=== PATIENT | female | born 1965 | race Caucasian/White ===

== ENCOUNTER → 2018-11-09 10:49 | Outpatient (CLI) | payer BC, SELFPAY ==
--- NOTE | 2018-11-09 10:56 | US_ITS ---
US thyroid HISTORY: Follow-up thyroid nodule, enlarged thyroid ITS.REASON: THYROID NODULE ORDERING PHYSICIAN: Yanira Senior MD PATIENT AGE: 53 years Comparison: 08/09/2014 FINDINGS: There is heterogeneous echogenicity of the thyroid gland on both sides. The right lobe is 4.5 x 1.7 x 1.5 cm. The left lobe is 4.2 x 1.2 x 1.5 cm. The isthmus is unremarkable. No nodules apparent IMPRESSION: Mildly enlarged thyroid gland with heterogeneous echogenicity without obvious nodule
== END ==
PROVIDERS: PCP Family Medicine; Visit Provider Family Medicine
DX: E04.1 Nontoxic single thyroid nodule (principal)
CPT/HCPCS: 76536

== ENCOUNTER → 2020-09-15 14:47 | Outpatient (CLI) | payer BC, SELFPAY ==
--- NOTE | 2020-09-15 | XR_ITS ---
PROCEDURE: XR FOOT LT MIN 3V CLINICAL INDICATION: CONTUSION OF THE LT FOOT COMPARISON: No exams were available for comparison FINDINGS: There are nondisplaced fractures involving the distal shaft of the 4th and 5th metatarsals. There is minimal impaction of the 5th metatarsal fracture fragments and there is minimal lateral angulation of the distal fracture fragments. The joint spaces are well-preserved. No significant degenerative/arthritic changes. No erosive changes evident. Other findings:None. IMPRESSION: Nondisplaced fractures 4th and 5th metatarsals Dictated by: Dm Hurst MD 09/15/2020 15:39 Dm Hurst MD in [place] 09/15/2020 15:39
== END ==
PROVIDERS: PCP Family Medicine; Visit Provider Family Medicine
DX: S90.32XA Contusion of left foot, initial encounter (principal)
CPT/HCPCS: 73630

== ENCOUNTER → 2020-09-21 14:26 | Outpatient (CLI) | payer BC, SELFPAY ==
[2020-09-21 15:16] LABS: Basophils # 0.1 K/mm3 (0-0.2); Basophils % 0.8 % (0.1-2.0); Eosinophils # 0.1 K/mm3 (0.0-0.4); Eosinophils % 0.8 % (0.1-12.0); Hematocrit 44.1 % (37.0-47.0); Hemoglobin 14.7 g/dL (12.2-16.2); Lymphocytes # 1.9 K/mm3 (0.7-4.5); Lymphocytes % 15.8 % (10-50); Mean Corpuscular HGB Conc 33.3 g/dL (31.8-35.4); Mean Corpuscular Hemoglobin 33.5 pg (27.0-31.2); Mean Corpuscular Volume 100.5 fl (81-99); Monocytes # 0.7 K/mm3 (0.1-1.0); Neutrophils % 76.6 % (37.0-80.0); Platelet Count 342 K/mm3 (142-424); Red Blood Count 4.39 M/mm3 (4.20-5.40); Red Cell Distribution Width 13.3 % (11.5-17.5); White Blood Count 11.8 K/mm3 (4.8-10.8)
--- NOTE | 2020-09-21 15:26 | XR_ITS ---
PROCEDURE: XR CHEST 2V CLINICAL HISTORY: SEASONAL ALLERGIES,SINUSITIS COMPARISON: No exams were available for comparison FINDINGS: The cardiomediastinal silhouette and pulmonary vascularity are within normal limits. The lungs are clear without infiltrates, suspicious nodules, or pleural effusions. There is mild hyperinflation. Calcified granuloma is present in the right upper lobe. Mild thoracic curvature convex left IMPRESSION: Hyperinflation with old granulomatous disease. No acute finding. Dictated by: Dm Hurst MD 09/21/2020 18:02 Dm Hurst MD in [place] 09/21/2020 18:02
[2020-09-21 16:24] LABS: Chloride 103 mmol/L (98-107); Sodium 140 mmol/L (136-145)
[2020-09-21 16:27] LABS: Alanine Aminotransferase 42 U/L (12-78); Albumin Level 4.9 g/dl (3.5-5.0); Albumin/Globulin Ratio 1.6 (1.1-1.8); Alkaline Phosphatase 117 U/L (38-126); Aspartate Amino Transferase 44 U/L (14-36); Bilirubin,Total 0.4 mg/dl (0.2-1.3); Blood Urea Nitrogen 13 mg/dl (7-17); Calcium 10.4 mg/dl (8.4-10.2); Carbon Dioxide 25 mmol/L (22.0-30.0); Estimated Glomerular Filt Rate 105 ml/min (>60); GFR (African American) 127 ML/MIN (>60); Glucose 95 mg/dl (74-100); Total Protein,Serum 7.9 g/dl (6.3-8.2)
[2020-09-21 16:44] LABS: 25-OH Vitamin D, Total 39.5 ng/mL (30-100)
--- NOTE | 2020-09-21 16:50 | ECG_ITS ---
APPROVED REPORT Exam: Resting ECG HR:74 bpm ECG Measurements Heart Rate [address] 154 P 73 QRSd 74 QRS 70 QT 416 T 58 QTc 461 Conclusion Sinus rhythm with premature atrial complexes with aberrant conduction Right atrial enlargement Septal infarct, age undetermined Abnormal ECG Electronically signed by : Jorge Lutz, 09/22/2020 14:47:31
[2020-09-21 17:53] LABS: Coronavirus 19 IgG Antibody Negative (Negative); Coronavirus 19 IgM Antibody Negative (Negative)
== END ==
PROVIDERS: Visit Provider Podiatrist
DX: Z01.818 Encounter for other preprocedural examination (principal); S92.352A Displaced fracture of fifth metatarsal bone, left foot, initial encounter for closed fracture
CPT/HCPCS: 36415; 71046; 80053; 82306; 85025; 86328; 93005

== ENCOUNTER 2020-09-23 10:36 | Day surgery (SDC) | payer BC, SELFPAY ==
[2020-09-21 11:49] VITALS: BMI 21.0
[2020-09-23] VITALS (12 sets, daily range): BP systolic 116–156; BP diastolic 69–91; PULSE 78–100; RESP 14–20; TEMP 36.3–43; O2SAT 93–98
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
--- NOTE | 2020-09-23 14:49 | XR_ITS ---
PROCEDURE: XR FOOT LT 2V CLINICAL INDICATION: LEFT ORIF IN OR COMPARISON: CR XR FOOT LT MIN 3V from 09/15/2020 FINDINGS: Fluoro time: 17 seconds Status post ORIF 4th and 5th metatarsal fractures with bone plates and cerclage wires placed with good alignment. Other findings:None. IMPRESSION: Good alignment status post ORIF 4th and 5th metatarsal fractures Dictated by: Dm Hurst MD 09/23/2020 15:24 Dm Hurst MD in [place] 09/23/2020 15:24
--- NOTE | 2020-09-23 15:00 | XR_ITS ---
PROCEDURE: XR FOOT LT 2V CLINICAL INDICATION: LEFT ORIF IN OR Follow-up surgery COMPARISON: CR XR FOOT LT MIN 3V from 09/15/2020 FINDINGS: Fluoro time: 17 seconds Status post ORIF 4th and 5th metatarsal fractures with bone plates and cerclage wires placed with good alignment. Other findings:Posterior splint is in place. IMPRESSION: Good alignment status post ORIF 4th and 5th metatarsal fractures Dictated by: Dm Hurst MD 09/24/2020 06:20 Dm Hurst MD in [place] 09/24/2020 06:20
--- NOTE | 2020-09-23 15:24 | HMH.ANESI ---
[facility] Anesthesia Record Part I Intake, IV Amount: 1,500 Estimated blood loss (mL): 10 Urine output (mL): 0 (NM) Blood Products used (#): none Blood Pressure: 156/91 SaO2: 96 Pulse Rate: 100 Respiratory Rate: 15 Temperature: 98.8 F Patient is:: Awake, Drowsy, Stable Stable to PACU at:: 15:20
--- NOTE | 2020-09-23 15:31 | HMH.OPNOTE ---
Date of procedure: 09/23/20 Pre-op Diagnosis:: 1. Left closed displaced 5th metatarsal fracture 2. Left closed comminuted 4th metatarsal fracture 3. Left traumatic ecchymosis Post-op Diagnosis:: Same Procedure performed:: 1. Left ORIF 4th metatarsal 2. Left ORIF 5th metatarsal 3. Application of BMA, injectable graft 4. Application of posterior splint Surgeon:: Elisabeth Yusuf DPM TRADING ASSISTANT:: Tay Rodriguez Anesthesia: GETA, regional (Left popliteal block) Estimated blood loss (mL): 20 Clinical Note:: Patient is a 54 y/o female who tripped and stumped her left foot on 09/13/20. X-rays 3 views of left foot taken 09/15/2020 evaluated by myself. Report noted. FINDINGS: There are nondisplaced fractures involving the distal shaft of the 4th and 5th metatarsals. There is minimal impaction of the 5th metatarsal fracture fragments and there is minimal lateral angulation of the distal fracture fragments. The joint spaces are well-preserved. No significant degenerative/arthritic changes. No erosive changes evident. Other findings: None. IMPRESSION: Nondisplaced fractures 4th and 5th metatarsals. X-rays reviewed and discussed with the patient. Conservative treatment discussed including immobilization nonweightbearing in the boot or cast, compression therapy for the edema and serial x-rays to for healing. Patient is an active 54-year-old female who works remotely from home and also at a retirement. Her activity does require her to be weightbearing and walking around the retirement. We discussed fastest return activity would include surgery. We discussed surgery. All risks and benefits were discussed including but not limited to: damage to blood vessels and nerves, bleeding, infection, wound complications, delayed, mal or non-union of bone, post-traumatic arthritis, need for further surgery, need for removal of implant, prolonged swelling of the extremity, prolonged pain, CRPS/RSD, DVT, and anesthetic complications. No guarantees were given. All questions fully answered. The patient verbalized understanding and agreed to proceed with surgery. Consent was obtained. We also discussed DVT and PE in detail. Patient's mother had a DVT secondary to a punctured lung. We discussed risk factors. Patient is not obese and has no personal history DVT. Discussed anticoagulation therapy including Lovenox Xarelto and aspirin. Recommend aspirin 81 mg in the postoperative. For DVT prophylaxis. Necessary labs and pre-op testing ordered: CBC, BMP, Vit D, EKG, CXR, covid. Pt was given a Rx for [place] 7.5/325 #30, Zofran, Motrin. Patient has crutches at home. I recommended RKS. Saw Dr. Avina, PCP on 09/15/20 and got medical clearance on 09/21/20. Operative findings:: Left foot edema and traumatic ecchymosis has improved. Fourth and fifth metatarsal fractures noted. The fourth and fifth metatarsal head cartilage intact. There was comminution of both metatarsals with impaction and shortening of the distal metatarsal. No fracture healing or callus formation noted. No deep signs of infection noted. Operative note:: On this date and time patient was deemed an appropriate surgical candidate. A pre-operative popliteal regional nerve block was given by anesthesia. With informed consent signed, the patient was taken to the operating theater. The patient was positioned supine. General anesthesia was induced. Tourniquet was applied to the left mid-calf. The left lower extremity was prepped and draped in normal sterile fashion. At the start of the case 5 cc of the patient's blood was taken to use for the bone marrow aspirate (BMA). Left 4-5th Metatarsal ORIF, Application of Ignite BMA/graft, Application of posterior splint: Attention was directed to the dorsal foot, where intra-op fluoroscopy was used to map out the 4-5th metatarsals on the AP, MO and lateral views. The left midcalf tourniquet was inflated at 225 mmHg. A 15' blade was used to make two separate incisions. One extending from the 4th metatarsal phalang
--- NOTE | 2020-09-23 18:23 | HMH.ANESII ---
[facility] Anesthesia Record Part II Discharge Time: 15:50 Destination: Surgical Day Care (OP Surgery) PACU nurse assessment reviewed?: Yes Patient Condition:: Good Anesthesia Complications:: None Swallowing reflex intact?: Yes Cyanosis?: No Blood Pressure: 139/82 Pulse Rate: 83 Temperature: 98.8 F Mental Status: Alert & Oriented Pain level:: 0 (nm) Nausea and/or vomitting:: None Intake, IV Amount: 0
== END 2020-09-23 16:32 | disposition home or self-care (01) ==
PROVIDERS: PCP Family Medicine; Visit Provider Podiatrist
PROC: (CPT 28485; principal; 2020-09-23 12:15)
DX: S92.352A Displaced fracture of fifth metatarsal bone, left foot, initial encounter for closed fracture (principal); S92.342A Displaced fracture of fourth metatarsal bone, left foot, initial encounter for closed fracture; W01.0XXA Fall on same level from slipping, tripping and stumbling without subsequent striking against object, initial encounter; Y92.009 Unspecified place in unspecified non-institutional (private) residence as the place of occurrence of the external cause
CPT/HCPCS: 28485 ×2; 73620; 73630; 76000; 96374; C1713; C1762; C1776; J2405

== ENCOUNTER 2020-10-12 12:00 | Emergency (ER) | payer BC, SELFPAY ==
[2020-10-12 13:05] VITALS: BP 123/78; PULSE 68; RESP 16; TEMP 36.8; O2SAT 96; BMI 20.9
--- NOTE | 2020-10-12 13:16 | HMH.EDUTC ---
[facility] Disposition Clinical Impression: Encounter for laboratory testing for COVID-19 virus Disposition: Home, Self-Care Condition on Discharge: Good Instructions: Preventing the Spread of Coronavirus Discharge Instructions Additional Instructions: *Monitor Temp, Over the counter Motrin or Tylenol as directed/as needed Tylenol every 4 hours and Motrin every 6 hours (as long as your family doctor has told you that you can take it) for fever or pain. and straight to ER if unable to lower temp less than 101.0 after medication given *Warm salt water gargles may help to soothe the throat *Throat Lozenges *Warm fluids like tea with honey may help to soothe the throat *Sleep elevated *Humidifier/Vaporizer *Flonase 2 sprays in each nostril daily but be aware that it may take 2-3 days before you notice improvement Follow up IMMEDIATELY for new or worsening symptoms or no Noticeable improvement over the next 48-72 hours. 911 for difficulty breathing or swallowing You was tested for today for COVID19 your test result should be back in the next 24-48 hours, you may call to the [facility] later today or tomorrow to see if your test results are back and the result [phone] [facility] hours are 9am-9pm You was given a handout with instructions for Self Quarantine and Self isolation for while you wait on test results and what to do if they are positive If you are positive the Health Dept will be contacting you also Referrals: Yanira Senior MD [Primary Care Provider] - As needed Forms: Work/School Release Time of Disposition: 13:19 Medical Decision Making - Evan Inquiry Pt receiving controlled substance: No Evan was queried for this patient: No Vital Signs: 10/12/20 13:05 Temperature 98.3 F Temperature Source Oral Pulse Rate [Right Brachial] 68 Respiratory Rate 16 Blood Pressure [Right Arm] 123/78 Blood Pressure Mean [Right Arm] 93 Blood Pressure Source [Right Arm] Automatic Cuff Blood Pressure Position [Right Arm] Sitting 02 Sat by Pulse Oximetry 96 Oxygen Delivery Method Room Air Orders (Tests/Meds): ORDERS Category Date Time Status Covid-19 Nasal PCR Sendout Joseph Routine Lab 10/12/20 12:23 Ordered [facility] HPI - General Stated complaint: wants covid test Time Seen by Provider: 10/12/20 13:17 Mode of Arrival: Ambulatory Source of Information: Patient Limitations: No Limitations Description of Symptoms (Recalled from Triage Doc. by RN): PATIENT REQUESTING COVID TEST, NO DIRECT EXPOSURE; C/O COUGH HEENT Symptoms (Recalled from RN notes): No Resp Symptoms (Recalled from RN notes): Yes Skin Symptoms (Recalled from RN notes): No MS Symptoms (Recalled from RN notes): No Functional Status (Recalled from RN notes): WNL - History of Present Illness Provider Complaint: Patient states that her son was recently exposed to someone with COVID at [employer] and she has since developed a cough States that she thinks it is her allergies but with Thanksgiving coming up she wanted to get tested Denies any other symptoms - Related Data Home Medications Medication Instructions Recorded Confirmed Acyclovir [Zovirax] 800 mg PO NEEDED PRN 12/04/18 10/07/20 Ergocalciferol (Vitamin D2) 1,000 unit PO DAILY 12/04/18 10/07/20 [Vitamin D] Kosse-3 Fatty Acids [Fish Oil] 300 mg PO DAILY 12/04/18 10/07/20 Venlafaxine HCl [Effexor XR 75mg 75 mg PO DAILY 12/04/18 10/07/20 capsule] diphenhydrAMINE HCL [Benadryl] 25 mg PO DAILY 12/04/18 10/07/20 Previous Rx's Medication Instructions Recorded hydrocodone 7.5 mg-acetaminophen 1 tab PO Q4-6H PRN #40 tab 09/17/20 325 mg tablet ibuprofen 800 mg tablet 800 mg PO BID #60 tab 09/17/20 ondansetron 4 mg disintegrating 4 mg PO Q6H #30 tab 09/17/20 tablet Allergies Allergy/AdvReac Type Severity Reaction Status Date / Time codeine AdvReac Vomiting Verified 10/07/20 10:37 morphine AdvReac Nausea Verified 10/07/20 10:37 - Worker's Comp Is this a Worker's Comp case?: N
[2020-10-12 13:21] VITALS: BP 123/78; PULSE 68; RESP 16; TEMP 36.8; O2SAT 96
[2020-10-14 15:15] LABS: Covid-19 Nasal PCR Sendout Lex Positive
== END 2020-10-12 13:25 | disposition home or self-care (01) ==
PROVIDERS: Emergency Provider Nurse Practitioner; PCP Family Medicine
DX: U07.1 COVID-19 (principal); K21.9 Gastro-esophageal reflux disease without esophagitis; F41.9 Anxiety disorder, unspecified; R01.1 Cardiac murmur, unspecified; F17.290 Nicotine dependence, other tobacco product, uncomplicated
CPT/HCPCS: 99201; U0004

== ENCOUNTER → 2020-10-29 09:53 | Outpatient (CLI) | payer BC, SELFPAY ==
--- NOTE | 2020-10-29 09:57 | XR_ITS ---
PROCEDURE: XR FOOT WT BEARING LT 3V CLINICAL INDICATION: post-op Follow-up surgery COMPARISON: CR XR FOOT LT MIN 3V from 09/15/2020 CR XR FOOT LT MIN 3V from 09/23/2020 FINDINGS: Status post ORIF 4th and 5th metatarsals with dorsal bone plates and cerclage wires with good alignment of the fracture fragments. The splint has been removed. There are mild osteoarthritic changes at the 1st MTP joint. Other findings:None. IMPRESSION: Good alignment status post ORIF 4th and 5th metatarsal fractures Dictated by: Dm Hurst MD 10/29/2020 16:15 Dm Hurst MD in [place] 10/29/2020 16:15
== END ==
PROVIDERS: PCP Family Medicine; Visit Provider Podiatrist
DX: Z98.890 Other specified postprocedural states (principal); S99.922D Unspecified injury of left foot, subsequent encounter
CPT/HCPCS: 73630

== ENCOUNTER → 2020-11-23 14:18 | Outpatient (CLI) | payer BC, SELFPAY ==
--- NOTE | 2020-11-23 14:22 | XR_ITS ---
PROCEDURE: XR FOOT WT BEARING LT 3V CLINICAL INDICATION: pain Pain prior surgery COMPARISON: 10/29/2020 FINDINGS: Mild hallux valgus with bunion formation at the distal aspect of the 1st metatarsal with mild osteoarthritic changes at the 1st MTP joint and interphalangeal joint. Dorsal bone plates are present at the mid distal aspect of the 4th and 5th metatarsals with cortical screws and cerclage wires. There is good alignment. Fracture lines are not identified. Other findings:None. IMPRESSION: Status post ORIF 4th and 5th metatarsal fractures with good alignment as described above. Dictated by: Dm Hurst MD 11/23/2020 14:43 Dm Hurst MD in [place] 11/23/2020 14:43
== END ==
PROVIDERS: PCP Family Medicine; Visit Provider Podiatrist
DX: S92.342A Displaced fracture of fourth metatarsal bone, left foot, initial encounter for closed fracture (principal); S92.352A Displaced fracture of fifth metatarsal bone, left foot, initial encounter for closed fracture; Z98.890 Other specified postprocedural states
CPT/HCPCS: 73630

== ENCOUNTER 2020-12-08 13:34 | Day surgery (SDC) | payer BC, SELFPAY ==
[2020-12-08] VITALS (9 sets, daily range): BP systolic 131–179; BP diastolic 74–91; PULSE 73–84; RESP 16–18; TEMP 36.1–36.7; O2SAT 96–100; BMI 21.0
[2020-12-08 12:02] LABS: Adenovirus,PCR Not Detected (NotDetected); Bordetella Pertussis Not Detected (NotDetected); Chlamydophila Pneumoniae, PCR Not Detected (NotDetected); Coronavirus 19, PCR Not Detected (NotDetected); Coronavirus 229E Not Detected (NotDetected); Coronavirus NL63 Not Detected (NotDetected); Coronavirus OC43 Not Detected (NotDetected); Coronovirus HKU1,PCR Not Detected (NotDetected); Human Metapneumovirus Not Detected (NotDetected); Influenza A, PCR Not Detected (NotDetected); Influenza AH1, 2009 Not Detected (NotDetected); Influenza AH1, PCR Not Detected (NotDetected); Influenza AH3,PCR Not Detected (NotDetected); Influenza B, PCR Not Detected (NotDetected); Mycoplasma Pneumoniae, PCR Not Detected (NotDetected); Parainfluenza 1, PCR Not Detected (NotDetected); Parainfluenza 2, PCR Not Detected (NotDetected); Parainfluenza 3, PCR Not Detected (NotDetected); Parainfluenza 4, PCR Not Detected (NotDetected); Respiratory Syncytial Virus Not Detected (NotDetected); Rhinovirus/Enterovirus Not Detected (NotDetected)
--- NOTE | 2020-12-08 15:27 | XR_ITS ---
PROCEDURE: XR FOOT LT 2V CLINICAL INDICATION: HARDWARE REMOVAL COMPARISON: CR XR FOOT LT MIN 3V from 09/15/2020 CR XR FOOT LT MIN 3V from 09/23/2020 CR XR FOOT WT BEARING LT 3V from 10/29/2020 CR XR FOOT WT BEARING LT 3V from 11/23/2020 FINDINGS: Fluoroscopy time: 6 seconds. Cerclage wires were removed from the 5th metatarsal. Bone plate remains in place. Other findings:None. IMPRESSION: Hardware removal with fluoro Dictated by: Dm Hurst MD 12/08/2020 15:36 Dm Hurst MD in [place] 12/08/2020 15:36
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
--- NOTE | 2020-12-08 15:40 | HMH.ANESI ---
[facility] Anesthesia Record Part I Intake, IV Amount: 450 Estimated blood loss (mL): 2 Urine output (mL): 0 Blood Products used (#): none Blood Pressure: 138/74 SaO2: 97 Pulse Rate: 79 Respiratory Rate: 18 Temperature: 97.0 F Patient is:: Drowsy, Stable Stable to PACU at:: 15:35
--- NOTE | 2020-12-08 15:41 | HMH.OPNOTE ---
Date of procedure: 12/08/20 Pre-op Diagnosis:: 1. Left foot exposed hardware 2. Pain, retained deep orthopedic hardware Post-op Diagnosis:: Same Procedure performed:: 1. Left foot deep hardware removal Surgeon:: Elisabeth Yusuf DPM VEGETABLE WASHING MACHINE OPERATOR:: Jorge Astudillo Anesthesia: GETA, local (30cc 0.5% marcaine plain) Estimated blood loss (mL): 5 Clinical Note:: Patient is a 55-year-old female who underwent left fifth metatarsal ORIF on 09/23/2020. Patient presents to the office with exposed piece of cerclage K wire to the leg left dorsal lateral foot. Conservative treatment discussed but not recommended due to possible infection risk. We discussed surgery. All risks and benefits were discussed including but not limited to: damage to blood vessels and nerves, bleeding, infection, wound complications, delayed or non-union of bone, post-traumatic arthritis, need for further surgery, retained implant, prolonged swelling of the extremity, prolonged pain, RSD/CRPS, DVT, and anesthetic complications. No guarantees were given. All questions fully answered. The patient verbalized understanding and agreed to proceed with surgery. Consent was obtained. Necessary labs and pre-op testing ordered: covid pcr swab (positive covid pcr 10/12/20). She has fracture boot and DME. e-Rx [place], gabapentin and Bactrim DS x 10days. Operative findings:: Exposed cerclage wire noted to the dorsal lateral left fifth metatarsal. No purulence, malodor or signs of acute infection noted. Operative note:: On this date and time patient was deemed an appropriate surgical candidate. With informed consent signed, the patient was taken to the operating theater. The patient was positioned supine. General anesthesia was induced. Tourniquet was applied to the left mid-calf. Ankle block given with 30 cc 0.5% marcaine plain. Left 5th Metatarsal Deep Hardware Removal: The left lower extremity was prepped and drapped in normal sterile fashion. The tourniquet was inflated at 225mmHg. Attention was directed to the left fifth metatarsal, where a dorsal linear incision was mapped out over the exposed cerclage wire. Dissection was carried thru skin and sub q tissue, with care to maintain surgical hemostasis. The hardware was visualized. Cerclage wire was cut in all pieces were successfully removed from around the bone. The plate and screws were intact with no evidence of hardware failure. Intraoperative fluoroscopy was used to visualize plate, screws and the fracture which appeared to be healed. There were no signs of infection noted. The soft tissue appeared healthy with no diamond or necrotic tissue noted. There was no purulence or malodor appreciated. No palpable lymph nodes. The was flushed with copious amounts of sterile saline mixed with bacitracin irrigation. Patient then with minimal subcutaneous tissue. The deep and subcutaneous tissue layer was repaired with 3-0 Vicryl and 3-0 Nylon was used to close skin in an interrupted mattress suture fashion. The tourniquet was deflated after 17 mins and immediate hyperemic response was noted to the digits. The wounds were cleansed. Xeroform and a dry sterile dressing was then applied to the left foot. The patient was awoken from anesthesia and transferred to recovery with vital signs stable and neurovascular status intact. Discharge/Plan: Home today when ready and vital signs stable. Patient is to maintain dressing clean dry and intact. Ice to the top of the foot and elevate on two pillows. Partial weight bearing to the LLE in fracture boot with DME assistance (crutches, walker, rolling knee scooter). e-Rx for [place] 7.5/325 and Bactrim DS x10 days. Follow up in one week. Tourniquet time (min): 17 Condition: stable Disposition: same day Specimens:: None Complications:: None
--- NOTE | 2020-12-08 15:52 | XR_ITS ---
PROCEDURE: XR FOOT LT MIN 3V CLINICAL INDICATION: post op Follow-up surgery COMPARISON: CR XR FOOT LT MIN 3V from 09/23/2020 CR XR FOOT WT BEARING LT 3V from 10/29/2020 CR XR FOOT WT BEARING LT 3V from 11/23/2020 CR XR FOOT LT 2V from 12/08/2020 FINDINGS: There has been interval removal of cerclage wires along the 5th metatarsal bone plate. Bone plates are present along the dorsal aspect of the 4th and 5th metatarsals with good bony alignment. Osteoarthritic changes are present at the 1st MTP IMPRESSION: Interval removal of the cerclage wire the 5th metatarsal Dictated by: Dm Hurst MD 12/09/2020 06:48 mD Hurst MD in [place] 12/09/2020 06:48
[2020-12-09 06:58] VITALS: BP 160/82; PULSE 73; TEMP 36.3
--- NOTE | 2020-12-09 06:58 | HMH.ANESII ---
[facility] Anesthesia Record Part II Discharge Time: 16:05 Destination: Surgical Day Care (OP Surgery) PACU nurse assessment reviewed?: Yes Patient Condition:: Good Anesthesia Complications:: None Swallowing reflex intact?: Yes Cyanosis?: No Blood Pressure: 160/82 Pulse Rate: 73 Temperature: 97.4 F Mental Status: Alert & Oriented Pain level:: 0 Nausea and/or vomitting:: None Intake, IV Amount: 50
== END 2020-12-08 16:40 | disposition home or self-care (01) ==
LOC: OR 13:38
PROVIDERS: PCP Family Medicine; Visit Provider Podiatrist
PROC: (CPT 20680; principal; 2020-12-08 14:30)
DX: T84.84XA Pain due to internal orthopedic prosthetic devices, implants and grafts, initial encounter (principal); T84.223A Displacement of internal fixation device of bones of foot and toes, initial encounter; L03.116 Cellulitis of left lower limb; Z79.899 Other long term (current) drug therapy; T84.293A Other mechanical complication of internal fixation device of bones of foot and toes, initial encounter
CPT/HCPCS: 20680; 73620; 73630; 76000; 87581; 87633; 87798; 96374; J2405; U0003

== ENCOUNTER 2021-01-06 13:00 | Outpatient (RCR) | payer BC, SELFPAY ==
--- NOTE | 2020-12-03 14:07 | HMH.RHREAS ---
Rehab Reassessment Rehab OP Re-assessment Start: 12/03/20 13:56 Freq: Status: Active Protocol: Document 12/03/20 13:57 JD (Rec: 12/03/20 14:07 JD [id number]) Electronically Signed By Charles Farnsworth, PT 12/03/20 13:57 Rehab Re-assessment Subjective Subjective Patient reports 50% improvement since start of care. Objective Objective Notes AROM: DF 0; PF WNL; 13; EV 13; INV 31 PROM: DF 4; PF WNL; EV 17; INV 35 MMT: DF/PF 4+/5; IV/EV 4/5 Pain: 4/10 current; 3/10 best; 7/10 worst TTP: L distal 5th metatarsal 3 /4 Assessment Progress Assessment Progressing as Expected Assessment Notes Patient is tolerating progression of Rx well. ROM and MMT deficits persist as noted above. Main complaint at this time is pain and hypersensitivity to one spot on her incision of distal 5th metatarsal. PT and WCS susptected that it was a suture. Upon trying to remove it, it felt like touching metal on metal with forceps. Suspect possible hardware obstruction. Patient goals met STG2 Goals Not Met LTG's Revised Goals NA Plan Plan Continue with current POC. Frequency of Therapy 2x/week Duration of therapy 4 weeks Time and Billing Re-Eval Time 15 Re-Eval Billing Units 1 PHYSICIAN CERTIFICATION: I certify the specified therapy services for Shanthi Wu are required, authorized, and reviewed every 30 days.
== END 2021-01-06 13:05 | disposition home or self-care (01) ==
LOC: PT 13:00
PROVIDERS: PCP Family Medicine; Visit Provider Podiatrist
DX: S92.342A Displaced fracture of fourth metatarsal bone, left foot, initial encounter for closed fracture (principal); S92.352A Displaced fracture of fifth metatarsal bone, left foot, initial encounter for closed fracture
CPT/HCPCS: 97010; 97014; 97110; 97140; 97163; 97164; G0283

== ENCOUNTER 2024-12-01 15:59 | Emergency (ER) | payer BC, SELFPAY ==
--- NOTE | 2024-12-01 16:04 | XR_ITS ---
PROCEDURE INFORMATION: Exam: XR Left Elbow Exam date and time: 12/01/2024 3:58 PM Age: 59 years old Clinical indication: Injury or trauma; Fall; Blunt trauma (contusions or hematomas); Elbow; Left TECHNIQUE: Imaging protocol: Radiologic exam of the left elbow. Views: 3 or more views. COMPARISON: No relevant prior studies available. FINDINGS: Bones/joints: There is no evidence of acute fracture.There is no evidence of malalignment or dislocation. Soft tissues: Normal. IMPRESSION: There is no evidence of acute fracture.There is no evidence of malalignment or dislocation.
[2024-12-01 16:33] VITALS: BP 177/98; PULSE 101; RESP 18; TEMP 36.7; O2SAT 96; BMI 19.7
--- NOTE | 2024-12-01 16:34 | ED_ITS ---
Discharge Plan Disposition Patient Disposition: Home, Self-Care Condition: Good Prescriptions Prescriptions: No Action ibuprofen 800 mg tablet 800 mg PO BID Qty: 60 3RF gabapentin 100 mg capsule 100 mg PO TID PRN (Reason: nerve pain) 30 Days Qty: 90 0RF Rx Instructions: Start with one pill at night then increase to 2-3 pills for nerve pain hydrocodone-acetaminophen 7.5-325 mg tablet 1 tab PO venlafaxine 75 MG capsule,extended release 24hr 75 mg PO DAILY ergocalciferol (vitamin D2) 400 UNIT tablet 1,000 unit PO DAILY acyclovir 800 MG tablet 800 mg PO NEEDED PRN (Reason: sores) diphenhydramine HCl 25 MG capsule 25 mg PO DAILY omega-3 fatty acids 300 MG capsule 300 mg PO DAILY Referrals Follow up/Referrals: Adam Cobian DO [Staff Physician] - See instructions Sandro Senior MD [Primary Care Provider] - See instructions Activity Restrictions/Add. Instructions Additional Instructions/Restrictions: Rest the extremity, apply ice for 15 minutes as tolerated three or four times per day, Wear the nikolai wrap for compression, Elevate the extremity as tolerated while you are resting. Take ibuprofen for pain. Follow up with Dr. Cobian (orthopedics). Sometimes there can be fractures that don't show up well on the first set of x-rays. I put in a referral but you need to call her office and schedule an appointment. Follow up with your regular doctor. GO TO THE ER FOR ANY WORSENING SYMPTOMS Clinical Impressions Clinical Impression: Contusion of left elbow, Left elbow pain, Fall Instructions Patient Instructions: DI for Elbow Pain, How to Apply an Elastic Wrap on Elbow Print Language Print Language: Namibian Discharge ED Provider: Jamaal Whitney [facility] HPI General Stated complaint: AO 1-12 fell and hurt elbbow Time Seen by Provider: 12/01/24 16:33 History of Present Illness Provider Complaint: She states that earlier today she fell on the ice. She came down on her left elbow. Since then she has had left elbow pain and swelling. She denies any other injury or complaints. Related Data Home Medications ?Medication ?Instructions ?Recorded ?Confirmed acyclovir 800 mg tablet 800 mg PO NEEDED PRN sores 12/04/18 02/18/21 diphenhydramine HCl 25 mg capsule 25 mg PO DAILY allergies 12/04/18 02/18/21 ergocalciferol (vitamin D2) 10 mcg 1,000 unit PO DAILY Supplement 12/04/18 02/18/21 (400 unit) tablet omega-3 fatty acids 300 mg capsule 300 mg PO DAILY Supplement 12/04/18 02/18/21 venlafaxine 75 mg capsule,extended 75 mg PO DAILY mood 12/04/18 02/18/21 release 24 hr hydrocodone 7.5 mg-acetaminophen 1 tab PO 12/14/20 02/18/21 325 mg tablet Previous Rx's ?Medication ?Instructions ?Recorded ibuprofen 800 mg tablet 800 mg PO BID pain, mild #60 tabs 09/17/20 gabapentin 100 mg capsule 100 mg PO TID PRN nerve pain 1 12/08/20 month #90 caps Allergies Allergy/AdvReac Type Severity Reaction Status Date / Time codeine AdvReac Vomiting Verified 02/18/21 11:21 morphine AdvReac Nausea Verified 02/18/21 11:21 [facility] Disclaimer: The information contained in this section may have been updated after the patient was seen, as this information can be updated by other users. 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 [employer] current occupational exposures/hazards: No caffeine: Yes Have you lived/traveled outside US in past 30 days?: No Contact w/someone who lives/traveled outside US past 30 days?: No Exposure to someone with infectious disease in past 14 days?: No Do you have a fever (greater than 100.4 F or 38 C)?: No Have you tested positive for COVID-19: No Exposed to someone with COVID-19 in past 14 days?: No Do you have a sore throat?: No Do you have a cough?: No Do you have any weakness?: No Do you have any diarrhea?: No Are you experiencing any unusual bleeding?: No Do you have any muscle aches/pain?: No Do you have any abdominal pain?: No Are you experiencing loss of taste or smell?: No ROS Obtained: Yes All systems reviewed & no additional complaints except as documented Constitutional Constitutional: Denies chills and Denies fever(s) Eyes Eyes: Denies eye discharge ENT Ears, Nose, Mouth, and Throat: Denies dizziness, Denies otalgia and Denies sore throat Cardiovascular Cardiovascular: Denies chest pain Respiratory Respiratory: Denies shortness of breath, Denies chest congestion, Denies cough, Denies stridor and Denies wheezing Gastrointestinal Gastrointestingal: Denies nausea or vomiting Musculoskeletal Musculoskeletal: Reports as per HPI Integumentary/Breasts Skin/Breast: Denies redness, Denies rash and Denies wounds Neurologic Neurologic: Denies dizziness and Denies paresthesias Allergic/Immunologic Allergic/Immunologic: Denies wheezing Physical Exam General General appearance: alert and in no apparent distress Head Head exam: atraumatic, normocephalic and normal inspection Eye Eye exam: Present normal appearance, PERRL and EOMI ENT ENT exam: Present normal exam, normal oropharynx, mucous membranes moist, TM's normal bilaterally and normal external ear exam Neck Neck exam: Present normal inspection, full ROM and trachea midline; Absent meningismus or lymphadenopathy Chest Chest inspection: Present normal inspection and symmetric chest wall rise; Absent tenderness Respiratory Respiratory exam: Present normal lung sounds bilaterally; Absent respiratory distress Cardiovascular Cardiovascular exam: Present regular rate and normal rhythm; Absent JVD Abdominal Exam Abdominal exam: Present soft and normal bowel sounds; Absent distention, tenderness or guarding Extremities Exam Extremities exam: Present normal capillary refill; Absent calf tenderness Expanded Upper Extremity Exam Left: Shoulder exam: Present normal inspection and full ROM; Absent tenderness or tenderness over AC joint Arm exam: Present normal inspection and full ROM; Absent tenderness Elbow exam: Present full ROM, tenderness and swelling; Absent abrasion, laceration, ecchymosis, deformity, crepitus, dislocation, erythema, effusion, pain w/ pronation/supination or tenderness over radial head Forearm/Wrist exam: Present normal inspection and full ROM; Absent tenderness, tenderness over anatomical snuff box or pain with axial thumb loading Hand exam: Present normal inspection and full ROM; Absent tenderness Neuromotor exam: Normal wrist extension, thumb opposition, thumb IP flexion, thumb adduction and fingers 2-5 abduction Neurosensory exam: Normal radial nerve, ulnar nerve and median nerve Vascular exam: Normal capillary refill, radial pulse and ulnar pulse Back Exam Back exam: Present normal inspection; Absent tenderness Neurological Exam Neurological exam: Present alert and oriented X3 Psychiatric Psychiatric exam: Present normal affect and normal mood Skin Skin exam: Present warm, dry, intact and normal color Lymphatic Lymphatic Findings: no adenopathy Medical Decision Making Medical Records Medical records reviewed: No I reviewed the patient's medical records. Screening: Per USPSTF and CDC recommendations, given the prevalence of disease in our region, it is our hospital?s policy to screen for HIV and viral Hepatitis for all patients aged 18 and over and those with ongoing risk factors. Evan Inquiry Pt receiving controlled substance: No Orders (Tests/Meds): ORDERS Category Date Time Status Elbow XR left mininum 3 views [XR elbow LT min 3V] Stat Exams 12/01/24 16:04 Taken Radiology Data #1: Image(s): Elbow Image Reviewed: Yes I reviewed the patient's radiology image and Yes I have reviewed radiologist's interpretation Preliminary Findings: No Fracture Seen Accession No. : [id number] Patient Name / ID : ERWIN FLOR / [id number] Exam Date : 12/01/2024 15:58:54 ( Final ) Study Comment : Sex / Age : F / 59Y Creator : NYASIA WALL MD Dictator : Hat Body Sorter : Bindery Machine Feeder Offbearer : NYASIA WALL MD Approver2 : Report Date : 12/01/2024 16:46:30 My Comment : PROCEDURE INFORMATION: Exam: XR Left Elbow Exam date and time: 12/01/2024 3:58 PM Age: 59 years old Clinical indication: Injury or trauma; Fall; Blunt trauma (contusions or hematomas); Elbow; Left TECHNIQUE: Imaging protocol: Radiologic exam of the left elbow. Views: 3 or more views. COMPARISON: No relevant prior studies available. FINDINGS: Bones/joints: There is no evidence of acute fracture.There is no evidence of malalignment or dislocation. Soft tissues: Normal. IMPRESSION: There is no evidence of acute fracture.There is no evidence of malalignment or dislocation. Procedures Risk/Benefits of Procedure(s) Were Explained: Yes Orthopedic Splinting/Casting Injury #1: Side: left Upper Extremity Injury Location: elbow Upper Extremity Immobilizer: Nikolai wrap and applied by nurse/dr velazquez Post Cast/Splinting Neuro Status: intact and no change Post Cast/Splinting Vasc Status: intact and no change
[2024-12-01 17:16] VITALS: BP 177/98; PULSE 101; RESP 18; TEMP 36.7
== END 2024-12-01 17:17 | disposition home or self-care (01) ==
PROVIDERS: Emergency Provider Nurse Practitioner Family; PCP Psychiatry & Neurology Sleep Medicine
DX: M25.522 Pain in left elbow (principal); S50.02XA Contusion of left elbow, initial encounter; W19.XXXA Unspecified fall, initial encounter
CPT/HCPCS: 73080; 99213; G0381

== ENCOUNTER 2025-07-31 09:19 | Outpatient (CLI) | payer BC, SELFPAY ==
--- OUTSIDE RECORDS SUMMARY | 2024-02-14 10:00 | XMS_ITS ---
Author Organization [facility] Address [address] [place] [id number] Care Team Providers Care Adventure Therapist Name Role Phone Latia Avina Primary Care Provider Kelvin Hayden Unavailable [phone] Allergies Allergen (clinical drug ingredient) Drug/Non Drug Allergy documented on EMR Reaction Allergy Type Onset Date Status codeine Codeine Unknown Drug Allergy Active morphine Morphine Unknown Drug Allergy Active Results Component Value Reference Range Notes CBC Fingerstick (in house) Reviewed date:02/15/2024 08:05:30 AM Interpretation: Performing Lab: Notes/Report: wbc 5.6 3.5 - 10 lym 18.2 15 - 50 mid 4.6 2 - 15 gran 77.2 35 - 80 rbc 4.23 3.5 - 5.5 hgb 13.9 11.5 - 16.5 hct 41.1 35 - 55 mcv 97.2 75 - 100 mch 32.9 25 - 35 mchc 33.8 31 - 38 plat 163 100 - 400 REASON FOR VISIT sore throat, congestion, headache Medications Medication SIG (Take, Route, Frequency, Duration) Notes Start Date End Date Status Premarin 0.625 MG/GM as directed intrava ginally twice weekly Active Promethazine-DM 6.25-15 MG/5ML 5 ml as needed Orally every 6 hrs 02/14/2024 Active Vitamin D3 50 MCG (1999 UT) 1 cap(s) orally once a day; Duration: 30 day(s) 11/09/2018 Active Zithromax Z-Johnny 250 MG as directed Orall y once daily; Duration: 5 day(s) 02/14/2024 Active hydrOXYzine HCl 25 MG 1-2 tab(s) orally 25 min before testing 10/31/2018 Active Benadryl Allergy 25 MG 1 cap(s) orally 3 times a day Active Venlafaxine HCl 37.5 MG 1 tab(s) orally once a day; Duration: 30 day(s) Active Multiple Vitamin - 1 cap(s) orally once a day; Duration: 30 day(s) Active Vital Signs Blood pressure systolic 140 mm Hg 02/14/20 24 Blood pressure diastolic 90 mm Hg 024 Heart Rate 95 /min 02/14/2024 Height 63.50 in 02/14/2024 Weight 108.2 lbs 02/14/2024 BMI 18.86 kg/m2 02/14/2024 Encounters Encounter Location Date Provider Diagnosis [facility] [address] [place] [id number] 02/14/2024 Kelvin Hayden URI, acute J06.9 Assessments Encounter Date Diagnosis (ICD Code) Assessment Notes Treatment Notes Treatment Clinical Notes Section Notes 02/14/2024 URI, acute (ICD-10 - J06.9) Plan Of Treatment Medication Medication Name Sig Start Date Stop Date Notes Promethazine-DM 6.25-15 MG/5ML 5 ml as n eeded Orally every 6 hrs 02/14/2024 Zithromax Z-Johnny 250 MG as directed Orall y once daily; Duration: 5 day(s) 02/14/2024 Next Appt Details Follow Up: prn, Reason: Progress Notes * Song WUOB:1965 ([age] yo F)Acc No.[id number]:02/14/2024 Progress Notes Patient: Shanthi ELLIS Provider: Kaleb Hayden M.D. :1965 A ge:58 Y S ex:Female Date:02/14/2024 Address:[address] [place] [address] ANNIE LEHMAN [id number] Pcp:Latia Avina Subjective: * Chief Complaints: * 1 . Sore throat, congestion, headache. * HPI: E NT/respiratory: 58 year old female presents with c/o cough P t complains of dry without any sputum production cough for 6 days. Associated with headache, sore throat, nausea, vomting and nasal congestion. * ROS: D ERMATOLOGY: no R favoila. n o H stefano. G ASTROENTEROLOGY: no N ausea. n o V omiting. U ROLOGY: no D ifficulty urinating. n o B lood in urine. * Medical History: F emale Problems, Migraines, Perenial Allergies. * Surgical History: C -Section X 2 , Ovary and Fallopian tubes removed-right side 08/2011. * Hospitalization/Major Diagno stic Procedure: [facility]. * Family History: F ather: alive 85 yrs, HBP. M other: 67 yrs, Arthritis, Pneumonia, Fibromyalgia.?2 son(s) . . * Social History: C affeine: yes, frequency: Coffee, tea, softdrinks. Home smoke detector use: yes. Past smoking status: previous history, Smoking status: Patient does smoke, Packs per day: .5, Number Cigarettes per day: 10, Smoking preference: cigarettes Pt stopped smoking 8 months ago (10/31/18). Alcohol: Yes, Type: Beer, wine mixed drinks 1-3 per week , Frequency: ,Years: , Determination:. * Medications: T aking Venlafaxine HCl 37.5 MG Tablet 1 tab(s) orally once a day , Taking Benadryl Allergy 25 MG Capsule 1 cap(s) orally 3 times a day , Taking Multiple Vitamin - Capsule 1 cap(s) orally once a day , Taking Premarin 0.625 MG/GM Cream as directed intravaginally twice weekly , Taking hydrOXYzine HCl 25 MG Tablet 1-2 tab(s) orally 25 min before testing , Taking Vitamin D3 50 MCG (1999 UT) Capsule 1 cap(s) orally once a day , Medication List reviewed and reconciled with the patient * Allergies: M orphine, Codeine. Objective: * Vitals: W t:108.2, Temp:98.3, BP:140/90, HR:95, O2 Sat:98% on RA, Nurse:aren, Ht: 63.50, BMI:18.86. * Examination: E NT/Respiratory: General Appearance: N AD. E yes: P ERRLA, sclera clear. E ars: a uditory canals normal bilaterally, TM's WNL. O ral cavity : minimal erythema without exudate on pharynx. N ilan : n o cervical lymphadenopathy. H eart : R RR, normal S1 S2. L ungs: c lear to auscultation bilaterally. Assessment: * Assessment: 1. U RI, acute - J06.9 (Primary) Plan: * Treatment: Value Reference Range w bc 5.6 3.5 - 10 * l ym 18.2 15 - 50 * m id 4.6 2 - 15 * g ran 77.2 35 - 80 * r bc 4.23 3.5 - 5.5 * h gb 13.9 11.5 - 16.5 * h ct 41.1 35 - 55 * m cv 97.2 75 - 100 * m ch 32.9 25 - 35 * m chc 33.8 31 - 38 * p lat 163 100 - 400 * Roya Isidro 02/14/2024 2: 11:57 PM > , Provider reviewed results while patient in office. * Procedure Codes: 9 [address] [place], [address] CAPILLARY BLOOD DRAW, 090[address] CBC WITH AUTO DIFF * Follow Up: p rn * Images: Billing Information: * Visit Code: 20505 Office Visit, Est Pt., Level 3. * Procedure Codes: [address] [place] [address] CAPILLARY BLOOD DRAW. 43973 CBC WITH AUTO DIFF. * Electronic signature of Maru Hayden MD on 07/31/2025 at 09:37 AM EDT Sign off status: Pending * Provider: Kaleb Hayden M.D. Date: 0 02/14/2024 Generated for Brenton leary/Tacos/eTransmitting on: 0 07/31/2025 09:37 AM EDT History and Physical Notes * HPI (History of Present Illness) Category Sub-Category Detail Notes Category Not es ENT/respiratory cough Pt complains of dry without any sputum production cough for 6 days. Associated with headache, sore throat, nausea, vomting and nasal congestion Examination Category Sub-Category Detail Notes Category Not es ENT/Respiratory Oral cavity : minimal erythema without exudate on pharynx Ears: auditory canals norm al bilaterally, TM's WNL Neck : no cervical lymphade nopathy Heart : RRR, normal S1 S2 Lungs: clear to auscultatio n bilaterally General Appearance: NAD Eyes: PERRLA, sclera clear
--- OUTSIDE RECORDS SUMMARY | 2024-07-29 10:15 | XMS_ITS ---
Author Organization [facility] Address [address] [place] [id number] Care Team Providers Care Sports Health Club Membership Advisors Name Role Phone Latia Avina Primary Care Provider Kelvin Hayden Unavailable [phone] Allergies Allergen (clinical drug ingredient) Drug/Non Drug Allergy documented on EMR Reaction Allergy Type Onset Date Status codeine Codeine Unknown Drug Allergy Active morphine Morphine Unknown Drug Allergy Active Results Component Value Reference Range Notes Covid test (in house) Reviewed date:07/29/2024 02:49:08 PM Interpretation:Positive Performing Lab: Notes/Report: Positive Result: Pos REASON FOR VISIT Possible COVID Medications Medication SIG (Take, Route, Frequency, Duration) Notes Start Date End Date Status Vitamin D3 50 MCG (1999 UT) 1 cap(s) orally once a day; Duration: 30 day(s) 11/09/2018 Active hydrOXYzine HCl 25 MG 1-2 tab(s) orally 25 min before testing 10/31/2018 Active Venlafaxine HCl 37.5 MG 1 tab(s) orally once a day; Duration: 30 day(s) Active Promethazine-DM 6.25-15 MG/5ML 5 ml as needed Orally every 6 hrs 02/14/2024 Active Premarin 0.625 MG/GM as directed intrava ginally twice weekly Active Multiple Vitamin - 1 cap(s) orally once a day; Duration: 30 day(s) Active Benadryl Allergy 25 MG 1 cap(s) orally 3 times a day Active Vital Signs Blood pressure systolic 138 mm Hg 07/29/20 24 Blood pressure diastolic 84 mm Hg 024 Heart Rate 97 /min 07/29/2024 Height 63.50 in 07/29/2024 Weight 108.4 lbs 07/29/2024 BMI 18.90 kg/m2 07/29/2024 Encounters Encounter Location Date Provider Diagnosis [facility] [address] [place] [id number] 07/29/2024 Kelvin Hayden COVID-19 U07.1 Assessments Encounter Date Diagnosis (ICD Code) Assessment Notes Treatment Notes Treatment Clinical Notes Section Notes 07/29/2024 COVID-19 (ICD-10 - U07.1) fluids, rest, supportive measures for fever/symptom relief Plan Of Treatment Medication Medication Name Sig Start Date Stop Date Notes Promethazine-DM 6.25-15 MG/5ML 5 ml as n eeded Orally every 6 hrs 02/14/2024 Treatment Notes Assessment Notes COVID-19 fluids, rest, suppor tive measures for fever/symptom relief Next Appt Details Follow Up: prn, Reason: Progress Notes * ERWINSongOB:1965 ([age] yo F)Acc No.[id number]:07/29/2024 Progress Notes Patient: Shanthi ELLIS Provider: Kaleb Hayden M.D. :1965 A ge:58 Y S ex:Female Date:07/29/2024 Address:[address] [place] [address] [id number] Pcp:Latia Avina Subjective: * Chief Complaints: * 1 . Possible COVID. * HPI: E NT/respiratory: 58 year old female presents with c/o cough P t complains of small amount of white sputum cough since Monday. Associated with chills, bodyaches, scratchy throat, headache, nasal congestion. Pt states she was in [place] over the weekend and her kvobyqop-hc-bxj tested positive for Covid last night . * ROS: D ERMATOLOGY: no R faviola. n o H stefano. G ASTROENTEROLOGY: no N ausea. n o V omiting. U ROLOGY: no D ifficulty urinating. n o B lood in urine. * Medical History: Therese Najeranial Allergies. * Surgical History: C -Section X [...] testing , Taking Vitamin D3 50 MCG (2000 UT) Capsule 1 cap(s) orally once a day , Not-Taking Promethazine-DM 6.25-15 MG/5ML Syrup 5 ml as needed Orally every 6 hrs , Discontinued Zithromax Z-Johnny 250 MG Tablet as directed Orally once daily , Medication List reviewed and reconciled with the patient * Allergies: M orphine, Codeine. Objective: * Vitals: W t:108.4, Temp:97.9, BP:138/84, HR:97, O2 Sat:96% on RA, Nurse:aren, Ht: 63.50, BMI:18.90. * Examination: E NT/Respiratory: General Appearance: N AD. E yes: P ERRLA, sclera clear. H eart : R RR, normal S1 S2. L ungs: c lear to auscultation bilaterally. ? Assessment: * Assessment: 1. OVID-19 - U07.1 (Primary) Plan: * Treatment: Value Reference Range R esult: Pos * Jhonny,Nicolette 07/29/2024 2:32:16 PM > , Provider reviewed results while patient in office. Notes: fluids, rest, supportive measures for fever/symptom relief?? * Procedure Codes: 9 47[address] [place], [address] COVID TEST IN HOUSE, Modifiers: QW * Follow Up: p rn * Images: Billing Information: * Visit Code: 76118 Office Visit, Est Pt., Level 3. * Procedure Codes: [address] [place]. [address] COVID TEST IN HOUSE. Modifiers: QW * Electronic signature of Maru Hayden MD on 07/31/2025 at 09:38 AM EDT Sign off status: Pending * Provider: Kaleb Hayden M.D. Date: 0 07/29/2024 Generated for Brenton leary/Tacos/Deanna on: 0 07/31/2025 09:38 AM EDT History and Physical Notes * HPI (History of Present Illness) Category Sub-Category Detail Notes Category Not es ENT/respiratory cough Pt complains of small amount of white sputum cough since Monday. Associated with chills, bodyaches, scratchy throat, headache, nasal congestion. Pt states she was in [place] over the weekend and her mrfdcjvo-jp-nqa tested positive for Covid last night Examination Category Sub-Category Detail Notes Category Not es ENT/Respiratory Heart : RRR, normal S1 S2 Lungs: clear to auscultatio n bilaterally General Appearance: NAD Eyes: PERRLA, sclera clear
--- OUTSIDE RECORDS SUMMARY | 2024-11-04 14:57 | XMS_ITS | Encounter Summary ---
[facility] Organization [facility] Address [address] [place] [address] Care Team Providers Care Rubbing Bed Operator Name Role Phone Chidi Senior MD Primary Care Provider [phone] Reason for Referral * Diagnostic Imaging (Routine) - Closed Specialty Diagnoses / Procedures Referred By Contact Referred To Contact Obstetrics and Gynecology Diagnoses Screening for osteoporosis Procedures DEXA Bone Density Axial Juana Gilliland APRN [address] [place] [address] Phone: tel: fax: [facility] [address] [address] Phone: tel: fax: Referral ID Status Reason Start Date Expiration Date Visits Re quested Visits Authorized [id number] Closed 11/04/2024 11/04/2025 1 1 Reason for Visit * Diagnostic Imaging (Routine) - Closed Specialty Diagnoses / Procedures Referred By Contact Referred To Contact Obstetrics and Gynecology Diagnoses Screening for osteoporosis Procedures DEXA Bone Density Axial Juana Gilliland APRN [address] [facility] [address] [place] [address] Phone: tel: fax: [facility] [address] [facility] [address] [place] [address] Phone: tel: fax: Referral ID Status Reason Start Date Expiration Date Visits Re quested Visits Authorized [id number] Closed 11/04/2024 11/04/2025 1 1 Encounter Details Date Type Department Care Team (Latest Contact Info) Description 11/04/2024 1:57 PM EST Hospital Encounter [facility] [address] [facility] [address] [place] [address] Screening for osteoporosis Social History Tobacco Use Types Packs/Day Years Used Date Smoking Tobacco: Former Cigarettes 0.5 30 Smokeless Tobacco: Never Comments:vape, quit cigarett es 3 years ago Alcohol Use Standard Drinks/Week Comments Yes 0 (1 standard drink = 0.6 oz pur e alcohol) MODERATE Comments No Sex and Gender Information Value Date Recorded Sex Assigned at Not on file Legal Sex Female 10:55 AM EDT Gender Identity Not on file Sexual Orientation Not on file documented as of this encounter Plan of Treatment Not on file documented as of this encounter Procedures Procedure Name Priority Date/Time Associated Diagnosis Comments DEXA BONE DENSITY AXIAL Routine 11/04/2024 2:58 PM EST Screening for osteoporosis documented in this encounter Results * DEXA Bone Density Axial (11/04/2024 2:58 PM EST) Anatomical Region Laterality Modality Wrist, Hip, L-spine N/A Bone Density Narrative 11/13/2024 7:46 PM EST Bone Density Scan Findings Consistent with Osteopenia Would recommend Calcium , Vitamin D, and Weight Bearing Exercises Follow Up Repeat Study in 2 Years Jett Estes MD us Juana Gilliland [employer]RO[employer] B[employer]EFITS ANALYST IMG DXA ORDERABLES Final R esult documented in this encounter Visit Diagnoses Diagnosis Screening for osteoporosis Special screening for osteoporosis documented in this encounter Care Teams Rubbing Bed Operator Relationship Specialty Start Date End Date Chidi Senior MD [address] [facility] [address] [place] [address] PCP - General Family Medicine 03/22/19 documented as of this encounter
--- OUTSIDE RECORDS SUMMARY | 2025-06-26 06:30 | XMS_ITS ---
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 Name Role Phone Latia Avina Primary Care Provider Michela Marinelli Unavailable [phone] Allergies Allergen (clinical drug ingredient) Drug/Non Drug Allergy documented on EMR Reaction Allergy Type Onset Date Status codeine Codeine Unknown Drug Allergy Active morphine Morphine Unknown Drug Allergy Active Results Component Value Reference Range Notes CBC Venipuncture (in house) Reviewed date:07/01/2025 09:20:15 AM Interpretation:WBC 10.3, Gran 85.0 Performing Lab: Notes/Report: WBC 10.3, Gran 85.0 wbc 10.3 3.5 - 10 lymph 11.2% 15 - 50 mid 3.8% 2 - 15 gran 85.0% 35 - 80 rbc 4.37 3.5 - 5.5 hgb 14.5 11.5 - 16.5 hct 43.1 35 - 55 mcv 98.7 75 - 100 mch 33.3 25 - 35 mchc 33.7 31 - 38 platlet 327 100 - 400 P-Comprehensive Metabolic Pa yojana (CMP) Reviewed date:07/01/2025 09:20:14 AM Interpretation:cl 96, gluc 60, alt 57, ast 65 Performing Lab: Notes/Report: Test performed by [facility] , [address], [place] [address] Andi Fermin MD, Passenger Car Cleaning Supervisor CLIA: [id number] Sodium 140 135-145 mmol/L Potassium 4.4 3.5-5.3 mmol/L Chloride 96 97-108 mmol/L CO2 25 20-32 mmol/L Glucose 60 65-99 mg/dL BUN 8 6-20 mg/dL Creatinine 0.67 0.50-1.00 mg/dL Calcium 10.3 8.6-10.4 mg/dL eGFR by Creatinine 101 >59 mL/min/1.73m2 Protein 7.8 6.0-8.3 g/dL Albumin 4.9 3.5-5.3 g/dL Alkaline Phosphatase 107 35-121 IU/L ALT (SGPT) 57 <5-47 IU/L AST (SGOT) 65 <5-40 IU/L Bilirubin, Total 0.5 <0.2-1.2 mg/dL A/G Ratio 1.7 1.1-2.5 P-T4 Free (thyroxine) Reviewed date:07/01/2025 09:20:14 AM Interpretation:Normal Performing Lab: Notes/Report: Test performed by [facility] [address] [place] [address] , [address] [place] [place] [id number] Andi Fermin MD, Passenger Car Cleaning Supervisor CLIA: [id number] Thyroxine Free (free T4) 0.95 0.86-1.76 ng/dL P-Lipid Panel Reviewed date:07/01/2025 09:20:14 AM Interpretation:chol 299, non-hdl 160, ldl 146 Performing Lab: Notes/Report: Test performed by [facility] [address] [place] [address] , [address], [place] [address] Andi Fermin MD, Passenger Car Cleaning Supervisor CLIA: [id number] Cholesterol 299 <200 mg/dL Triglycerides 71 <150 mg/dL HDL Cholesterol 139 >39 mg/dL Cholesterol / HDL Ratio 2.15 0.00-4.44 Ratio Non-HDL Cholesterol 160 <130 mg/dL LDL Cholesterol (Calculation) 146 <130 mg/dL LDL Cholesterol Levels* Less than 100 mg/dL Optimal 100 to 129 mg/dL Near Optimal/ Above Optimal 130 to 159 mg/dL Borderline High 160 to 189 mg/dL High 190 mg/dL and above Very High * Categories as recommended by the 2004 ATPIII guidelines LDL/HDL Ratio 1.0 <3.3 Ratio LDL Cholesterol Patient History Test Date: 06/26/2025 LDL Results: 146 Units: mg/dL % Change: - P-TSH Reviewed date:07/01/2025 09:20:15 AM Interpretation:Normal Performing Lab: Notes/Report: Test performed by [facility] [address] [place] [address] , [facility], [place] [address] Andi Fermin MD, Passenger Car Cleaning Supervisor CLIA: [id number] TSH 2.61 0.43-5.25 mU/L Reason For Referral Diagnosis 1 Gastroesophageal ref lux disease, unspecified whether esophagitis present (K21.9) Referral Organization [facility] Referring Provider First Name Michela Referring Provider Last Name Yves Referring Provider Speciality Physician Filament Wound Parts Fabricator Referred Provider Specialty Gastroentero logy General Notes Needs appt with Analy Manrique Brynn 06/27/2025 09:14:14 AM > faxed to Dr. Mcpherson office Referral Priority Routine REASON FOR VISIT Annual Wellness Visit Medications Medication SIG (Take, Route, Frequency, Duration) Notes Start Date End Date Status Fish Oil 500 MG 1 capsule Orally Thr ee times a day Active Benadryl Allergy 25 MG 1 cap(s) orally 3 times a day Active Multiple Vitamin - 1 cap(s) orally once a day; Duration: 30 day(s) Active Venlafaxine HCl 37.5 MG 1 tab(s) orally once a day; Duration: 90 days Active Vitamin D3 50 MCG (1999) 1 cap(s) ora lly once a day; Duration: 30 day(s) 11/09/2018 Active Problems Problem Type SNOMED Code ICD Code Onset Dates Problem Status W/U Status Risk Notes Problem Gastroesophageal reflux disease (720024305) Gastroesophageal reflux disease, unspecified whether esophagitis present (K21.9) Active confirmed Problem Postmenopausal state (finding) (50531649) Postmenopausal symptoms (N95.9) Active confirmed Vital Signs Blood pressure systolic 140 mm Hg 06/26/20 25 Blood pressure diastolic 82 mm Hg 025 Heart Rate 100 /min 06/26/2025 Height 63.50 in 06/26/2025 Weight 103 lbs 06/26/2025 BMI 17.96 kg/m2 06/26/2025 Encounters Encounter Location Date Provider Diagnosis [facility] [address] [place], [place] [id number] 06/26/2025 Michela Marinelli Routine physical examination Z00.00 ; Gastroesophageal reflux disease, unspecified whether esophagitis present K21.9 ; Postmenopausal symptoms N95.9 ; Fatigue, unspecified type R53.83 ; Thyroid nodule E04.1 ; Screening, lipid Z13.220 and Elevated blood pressure reading R03.0 Assessments Encounter Date Diagnosis (ICD Code) Assessment Notes Treatment Notes Treatment Clinical Notes Section Notes 06/26/2025 Routine physical examination (ICD-10 - Z00.00) 06/26/2025 Gastroesophageal reflux disease, unspecified whether esophagitis present (ICD-10 - K21.9) 06/26/2025 Postmenopausal symptoms (ICD-10 - N95.9) 06/26/2025 Fatigue, unspecified type (ICD-10 - R53.83) 06/26/2025 Thyroid nodule (ICD-10 - E04.1) 06/26/2025 Screening, lipid (ICD-10 - Z13.220) 06/26/2025 Elevated blood pressure reading (ICD-10 - R03.0) Will monitor twice a day at home and f/u in 2 weeks with BP log. Plan Of Treatment Medication Medication Name Sig Start Date Stop Date Notes Venlafaxine HCl 37.5 MG 1 tab(s) orally once a day; Duration: 90 days Treatment Notes Assessment Notes Elevated blood pressure reading Will mon itor twice a day at home and f/u in 2 weeks with BP log. Referrals Referral Date Details 06/27/2025 06/27/2025 Next Appt Details Follow Up: 2 Weeks, Reason: Progress Notes * Song WUOB:1965 ([age] yo F)Acc No.[id number]:06/26/2025 Annual Wellness Visit Patient: Shanthi ELLIS Provider: ROSHNI Garcia :1965 A ge:59 Y S ex:Female Date:06/26/2025 Address:[address] [place], [place] [address], [id number] Pcp:Latia Avina Subjective: * Chief Complaints: * 1 . Annual Wellness Visit. * HPI: H PI: Patient is here today for a Annual Wellness Visit. Pt is fasting. G astroenterology: c/o Acid Reflux P t states she is having a lot of acid reflux in the past few months. * ROS: D ERMATOLOGY: no R faviola. n o H stefano. G ASTROENTEROLOGY: no N ausea. n o V omiting. n o D iarrhea.? U ROLOGY: no D ifficulty urinating. n o B lood in urine. * Medical History: M igraines, Perenial Allergies. * Surgical History: C -Section X 2 , Ovary and Fallopian tubes removed-right side 08/2011. * Hospitalization/Major Diagno stic Procedure[facility]. * Family History: F ather: alive 86 yrs, HBP. M other: 67 yrs, Arthritis, [...] ,Years: , Determination:. * Medications: T aking Fish Oil 500 MG Capsule 1 capsule Orally Three times a day , Taking Venlafaxine HCl 37.5 MG Tablet 1 tab(s) orally once a day , Taking Benadryl Allergy 25 MG Capsule 1 cap(s) orally 3 times a day , Taking Multiple Vitamin - Capsule 1 cap(s) orally once a day , Taking Vitamin D3 50 MCG (1999) Capsule 1 cap(s) orally once a day , Medication List reviewed and reconciled with the patient * Allergies: M orphine, Codeine. Objective: * Vitals: W t: 103, Temp: 98.1, BP: 140/82, HR: 100, Nurse: pe, Ht: 63.50, BMI:17.96. * Examination: G eneral Examination: General Appearance: N AD. H EENT: u nremarkable.?Oral cavity: n o lesions, mucosa moist and WNL, no erythema. N ilan: s upple, no lymphadenopathy. C hest: n ormal shape and expansion. H eart: R SR. L ungs: c lear to auscultation. A bdomen: b owel sounds present, soft and nontender. N eurologic Exam: I ntact, gait normal. S kin: n ormal, no rash. P eripheral pulses: n ormal (2+) bilaterally. E xtremities: n o leg edema. Assessment: * Assessment: 1. R outine physical examination - Z00.00 (Primary) 2 . G astroesophageal reflux disease, unspecified whether esophagitis present - K21.9 3 . P ostmenopausal symptoms - N95.9 4 . F atigue, unspecified type - R53.83 5 . Thyroid nodule - E04.1 6 . S creening, lipid - Z13.220 7 .?Elevated blood pressure reading - R03.0 Plan: * Treatment: Value Reference Range A /G Ratio 1.7 1.1-2.5 - * A lbumin 4.9 3.5-5.3 - g/dL * A lkaline Phosphatase 107 35-121 - IU/L * A LT (SGPT) 57 H <5-47 - IU/L * A ST (SGOT) 65 H <5-40 - IU/L * B ilirubin, Total 0.5 <0.2-1.2 - mg/dL * B UN 8 6-20 - mg/dL * C alcium 10.3 8.6-10.4 - mg/dL * C hloride 96 L 97-108 - mmol/L * C O2 25 20-32 - mmol/L * C reatinine 0.67 0.50-1.00 - mg/dL * G lucose 60 L 65-99 - mg/dL * P otassium 4.4 3.5-5.3 - mmol/L * S odium 140 135-145 - mmol/L * P rotein 7.8 6.0-8.3 - g/dL * e GFR by Creatinine 101 >59 - mL/min/1.73m2 * Michela Marinelli 06/26/2025 11 :22:43 AM EDT >room 10, connor Roslyn Schroeder 07/01/2025 09:20:07 AM EDT > See phone encounter ?LAB: CBC Venipuncture (in house) (Collection Date & Time - 06/26/2025)?WBC 10.3, Gran 85.0* Value Reference Range w bc 10.3 3.5 - 10 * l ymph 11.2% 15 - 50 * m id 3.8% 2 - 15 * g ran 85.0% 35 - 80 * r bc 4.37 3.5 - 5.5 * h gb 14.5 11.5 - 16.5 * h ct 43.1 35 - 55 * m cv 98.7 75 - 100 * m ch 33.3 25 - 35 * m chc 33.7 31 - 38 * p latlet 327 100 - 400 * Karine Meyer 06/26/2025 12 :39:14 PM EDT > Roslyn Schroeder 07/01/2025 09:20:07 AM EDT > See phone encounter ? Referral To:Gastroenterology ?Reason: 2.?Postmenopausal symptoms? Decrease Venlafaxine HCl Tablet, 37.5 MG, 1 tab(s), orally, once a day, 90 days, 90 Tablet, Refills3.??3.?Thyroid nodule?LAB: P-T4 Free (thyroxine) (Collection Date & Time - 06/26/2025 10:45 AM)? Normal* Value Reference Range T hyroxine Free (free T4) 0.95 0.86-1.76 - ng/d L * Michela Marinelli 06/26/2025 11 :22:43 AM EDT >room 10, Roslyn Mayer 07/01/2025 09:20:07 AM EDT > See phone encounter ?LAB: P-TSH (Collection Date & Time - 06/26/2025 10:45 AM)?Normal* Value Reference Range T SH 2.61 0.43-5.25 - mU/L * Michela Marinelli 06/26/2025 11 :22:43 AM EDT >room 10, Roslyn Mayer 07/01/2025 09:20:07 AM EDT > See phone encounter 4.?Screening, lipid?LAB: P-Lipid Panel (Collection Date & Time - 06/26/2025 10:45 AM)?chol 299, non-hdl 160, ldl 146* Value Reference Range C holesterol / HDL Ratio 2.15 0.00-4.44 - Ratio * C holesterol 299 H <200 - mg/dL * H DL Cholesterol 139 >39 - mg/dL * L DL Cholesterol (Calculation) 146 H <130 - mg/d L * L DL/HDL Ratio 1.0 <3.3 - Ratio * N on-HDL Cholesterol 160 H <130 - mg/dL * T riglycerides 71 <150 - mg/dL * Michela Marinelli 06/26/2025 11 :22:43 AM EDT >room 10, Roslyn Mayer 07/01/2025 09:20:07 AM EDT > See phone encounter 5.?Elevated blood pressure reading? Notes: Will monitor twice a day at home and f/u in 2 weeks with BP log.?? * Procedure Codes: 8 5025 CBC WITH AUTO DIFF, 49595 VENIPUNCT, ROUTINE*, 3077F SYST BP = 140 MM HG6 IT, 3079F DIAST BP 80-89 MM HG * Follow Up: 2 Weeks * Images: Billing Information: * Visit Code: 50687 Preventive Care Est Pt Age 40-64. Modifiers: 25 08550 Office Visit, Est Pt., Level 3. * Procedure Codes: 84883 CBC WITH AUTO DIFF. 00200 VENIPUNCT, ROUTINE*. 3077F SYST BP = 140 MM HG6 IT. 3079F DIAST BP 80-89 MM HG. * Electronic signature of ROSHNI Joy on 07/31/2025 at 09:37 AM EDT Sign off status: Pending * Provider: ROSHNI Garcia Date: 0 06/26/2025 Generated for Bayi gibran/Tacos/eTransmitting on: 0 07/31/2025 09:37 AM EDT History and Physical Notes * HPI (History of Present Illness) Category Sub-Category Detail Notes Category Not es Gastroenterology Acid Reflux Pt states she i s having a lot of acid reflux in the past few months HPI Patient is here today for a Ailyn wv Wellness Visit. Pt is fasting Examination Category Sub-Category Detail Notes Category Not es General Examination HEENT: unremarkable Heart: RSR Lungs: clear to auscultatio n Abdomen: bowel sounds present , soft and nontender Extremities: no leg edema General Appearance: NAD Skin: normal, no rash Neurologic Exam: Intact, gait normal Neck: supple, no lymphaden opathy Oral cavity: no lesions, mucosa m oist and WNL, no erythema Peripheral pulses: normal (2+) bilatera lly Chest: normal shape and exp ansion Consultation Request Notes Referral Date Referring Provider Referred Provider Not es 06/27/2025 Michela Marinelli ,
--- OUTSIDE RECORDS SUMMARY | 2025-07-10 06:30 | XMS_ITS ---
Author Organization [facility] Address [address] [place] [id number] Care Team Providers Care Medical Pathology Teacher Name Role Phone Latia Avina Primary Care Provider Michela Marinelli Unavailable [phone] Allergies Allergen (clinical drug ingredient) Drug/Non Drug Allergy documented on EMR Reaction Allergy Type Onset Date Status codeine Codeine Unknown Drug Allergy Active morphine Morphine Unknown Drug Allergy Active Results Component Value Reference Range Notes CBC Venipuncture (in house) Reviewed date:07/10/2025 01:17:48 PM Interpretation: Performing Lab: Notes/Report: wbc 5.2 3.5 - 10 lymph 22.0% 15 - 50 mid 5.3% 2 - 15 gran 72.7% 35 - 80 rbc 4.21 3.5 - 5.5 hgb 14.2 11.5 - 16.5 hct 41.9 35 - 55 mcv 99.5 75 - 100 mch 33.8 25 - 35 mchc 33.9 31 - 38 platlet 293 100 - 400 P-ALT (SGPT) Reviewed date:07/24/2025 02:08:02 PM Interpretation:Normal Performing Lab: Notes/Report: Test performed by [facility] [address] [place] [address] , [address], [place] [address] Andi Fermin MD, Mobile Mechanic CLIA: [id number] ALT (SGPT) 35 <5-47 IU/L P-AST (SGOT) Reviewed date:07/24/2025 02:08:02 PM Interpretation:43 Performing Lab: Notes/Report: Test performed by [facility] [address] [place] [address] , [address], [place] [address] Andi Fermin MD, Mobile Mechanic CLIA: [id number] AST (SGOT) 43 <5-40 IU/L P-Hepatitis Acute Profile Reviewed date:07/24/2025 02:08:02 PM Interpretation:Normal Performing Lab: Notes/Report: Test performed by [facility] [address] [place] [address] , [address], [place] [address] Andi Fermin MD, Mobile Mechanic CLIA: [id number] Hepatitis A Antibody, IgM Nonreactive Nonreactive Hepatitis B Core Antibody (HBcAb) IgM Nonreactive Non reactive Hepatitis B Surface Antigen (HBsAg) Nonreactive Nonre active Hepatitis C Antibody (HCV) IgG Nonreactive Nonreactiv e REASON FOR VISIT Follow Up on BP Medications Medication SIG (Take, Route, Frequency, Duration) Notes Start Date End Date Status Vitamin D3 50 MCG (1999) 1 cap(s) ora lly once a day; Duration: 30 day(s) 11/09/2018 Active Fish Oil 500 MG 1 capsule Orally Thr ee times a day Active Benadryl Allergy 25 MG 1 cap(s) orally 3 times a day Active Lisinopril 5 MG 1 tab Orally Once a day; Duration: 30 days 07/10/2025 Active Venlafaxine HCl 37.5 MG 1 tab(s) orally once a day; Duration: 90 days Active Problems Problem Type SNOMED Code ICD Code Onset Dates Problem Status W/U Status Risk Notes Problem Essential hypertension (93179191) Essential hypertension (I10) Active confirmed Problem Mixed hyperlipidemia (637168689) Mixed hyperlipidemia (E78.2) Active confirmed Problem Increased blood leukocyte number (080652992) Other elevated white blood cell count (D72.828) Active confirmed Vital Signs Blood pressure systolic 144 mm Hg 07/10/20 25 Blood pressure diastolic 90 mm Hg 025 Heart Rate 74 /min 07/10/2025 Height 63.50 in 07/10/2025 Weight 103 lbs 07/10/2025 BMI 17.96 kg/m2 07/10/2025 Encounters Encounter Location Date Provider Diagnosis [facility] [address] [facility] [address] [place], [place] [id number] 07/10/2025 Michela Marinelli Essential hypertensi on I10 ; Mixed hyperlipidemia E78.2 ; Elevated LFTs R79.89 and Other elevated white blood cell count D72.828 Assessments Encounter Date Diagnosis (ICD Code) Assessment Notes Treatment Notes Treatment Clinical Notes Section Notes 07/10/2025 Essential hypertension (ICD-10 - I10) 07/10/2025 Mixed hyperlipidemia (ICD-10 - E78.2) Will need to start on a statin, but will check LFT's, hepatitis panel, and Liver U/S first. 07/10/2025 Elevated LFTs (ICD-10 - R79.89) 07/10/2025 Other elevated white blood cell count (ICD-10 - D72.828) Plan Of Treatment Medication Medication Name Sig Start Date Stop Date Notes Lisinopril 5 MG 1 tab Orally Once a day; Duration: 30 days 07/10/2025 Treatment Notes Assessment Notes Mixed hyperlipidemia Will need to start on a statin, but will check LFT's, hepatitis panel, and Liver U/S first. Pending Test Test Name Order Date Ultrasound : Abdomen limited 07/10/2025 Next Appt Details Follow Up: via phone to repo rt test results, Reason: Progress Notes * Song WUOB:1965 ([age] yo F)Acc No.[id number]:07/10/2025 Progress Notes Patient: Shanthi ELLIS Provider: ROSHNI Garcia :1965 A ge:59 Y S ex:Female Date:07/10/2025 Address:[address] [place] [id number] Pcp:Latia Avina Subjective: * Chief Complaints: * 1 . Follow Up on BP. * HPI: C ardiology: 59 year old female presents with c/o BloodPressure at Home P t here to f/u on Blood Pressure. Pt states that her BP been up and down but mostly elevated. Pt states the highest was yesterday and it was 153/97. . * ROS: D ERMATOLOGY: no R faviola. n o H stefaon. G ASTROENTEROLOGY: no N ausea. n o [...] tab(s) orally once a day , Taking Fish Oil 500 MG Capsule 1 capsule Orally Three times a day , Taking Benadryl Allergy 25 MG Capsule 1 cap(s) orally 3 times a day , Taking Vitamin D3 50 MCG (2000 UT) Capsule 1 cap(s) orally once a day , Discontinued Multiple Vitamin - Capsule 1 cap(s) orally once a day , Medication List reviewed and reconciled with the patient * Allergies: M orphine, Codeine. Objective: * Vitals: W t: 103, Temp: 98.0, BP: 144/90, HR: 74, Nurse: alina, Ht: 63.50, BMI:17.96. * Examination: G eneral [...] o leg edema. Assessment: * Assessment: 1. E ssential hypertension - I10 (Primary) 2 . M ixed hyperlipidemia - E78.2 3 . E levated LFTs - R79.89 4 . O ther elevated white blood cell count - D72.828 Plan: * Treatment: 2. M ixed hyperlipidemia Notes: Will need to start on a statin, but will check LFT's, hepatitis panel, and Liver U/S first.? 3. E levated LFTs L AB: P-ALT (SGPT) (Collection Date & Time - 07/10/2025 10:00 AM) N ormal Value Reference Range A LT (SGPT) 35 <5-47 - IU/L * Michela Marinelli 07/10/2025 1 0:53:39 AM EDT >room 9 Michela Marinelli 07/24/2025 02:07:53 PM EDT >see TE ?LAB: P-AST (SGOT) (Collection Date & Time - 07/10/2025 10:00 AM)?43* Value Reference Range A ST (SGOT) 43 H <5-40 - IU/L * Michela Marinelli 07/10/2025 1 0:53:39 AM EDT >room 9 Michela Marinelli 07/24/2025 02:07:53 PM EDT >see TE ?LAB: P-Hepatitis Acute Profile (Collection Date & Time - 07/10/2025 10:00 AM)?Normal* Value Reference Range H epatitis A Antibody, IgM Nonreactive Nonreactive - * H epatitis B Core Antibody (HBcAb) IgM Nonreactive Non reactive - * H epatitis B Surface Antigen (HBsAg) Nonreactive Nonre active - * H epatitis C Antibody (HCV) IgG Nonreactive Nonreactiv e - * Michela Marinelli 07/10/2025 1 0:53:39 AM EDT >room 9 Michela Marinelli 07/24/2025 02:07:53 PM EDT >see TE ?Imaging: Ultrasound : Abdomen limited* Cheyenne Beckford 07/14/2025 01:4 6:20 PM EDT > no auth required; CPT code 60408; faxed to [facility] Scheduling 4.?Other elevated white blood cell count?LAB: CBC Venipuncture (in house) (Collection Date & Time - 07/10/2025)* Value Reference Range w bc 5.2 3.5 - 10 * l ymph 22.0% 15 - 50 * m id 5.3% 2 - 15 * g ran 72.7% 35 - 80 * r bc 4.21 3.5 - 5.5 * h gb 14.2 11.5 - 16.5 * h ct 41.9 35 - 55 * m cv 99.5 75 - 100 * m ch 33.8 25 - 35 * m chc 33.9 31 - 38 * p latlet 293 100 - 400 * Bradkellen Karine 07/10/2025 1 1:13:41 AM EDT > * Procedure Codes: 8 5025 CBC WITH AUTO DIFF, 24405 VENIPUNCT, ROUTINE* * Follow Up: v ia phone to report test results * Images: Billing Information: * Visit Code: 37471 Office Visit, Est Pt., Level 4. * Procedure Codes: 28809 CBC WITH AUTO DIFF. 55533 VENIPUNCT, ROUTINE*. * Electronic signature of ROSHNI Joy on 07/31/2025 at 09:37 AM EDT Sign off status: Pending * Provider: ROSHNI Garcia Date: 0 07/10/2025 Generated for Brenton leary/Tacos/eTransmitting on: 0 07/31/2025 09:37 AM EDT History and Physical Notes * HPI (History of Present Illness) Category Sub-Category Detail Notes Category Not es Cardiology BloodPressure at Home Pt here to f/u on Blood Pressure. Pt states that her BP been up and down but mostly elevated. Pt states the highest was yesterday and it was 153/97. Examination Category Sub-Category Detail Notes Category Not [...]
--- NOTE | 2025-07-31 09:23 | US_ITS ---
FINAL REPORT TECHNIQUE: Sonographic images of the right upper quadrant were obtained. CLINICAL HISTORY: ELEVATED LFT S COMPARISON: None FINDINGS: PANCREAS: Unremarkable. LIVER: There is fatty infiltration of the liver. No focal hepatic lesion. No intrahepatic biliary ductal dilatation. GALLBLADDER: No gallstones. No gallbladder wall thickening or pericholecystic fluid. COMMON DUCT: 3 mm. Normal for age. RIGHT KIDNEY: The right kidney measures 8.2 cm. There is no hydronephrosis, mass, or stone. FREE FLUID: None. IMPRESSION: Fatty liver. Reviewed, Interpreted and Dictated by Taina Keen MD Transcribed by Felicitas Bower Authenticated and [facility]
--- OUTSIDE RECORDS SUMMARY | 2025-07-31 09:37 | XMS_ITS | Encounter Summary ---
Author Organization [facility] Address [address] [place] [address] Care Team Providers Care Head Of Ict Name Role Phone Chidi Senior MD Primary Care Provider [phone] Encounter Details Date Type Department Care Team ([facility] st Contact Info) Description 12/03/2012 Conversion Encounter [facility] HISTORICAL [facility]V [address] [place] [address] Interface, See Report Social History Tobacco Use Types Packs/Day Years Used Date Smoking Tobacco: Never Assessed Comments Unknown Sex and Gender Information Value Date Recorded Sex Assigned at Not on file Legal Sex Female 10:55 AM EDT Gender Identity Not on file Sexual Orientation Not on file documented as of this encounter Progress Notes * Interface, See Report - 12/03/2012 12:00 AM EST Patient: SANA WU MR #: : [id number] Date of Visit: 12/03/2012 Attending Physician: Prema Kidd Dictated By: NADIA JERNIGAN Referring Physician: Diagnosis: ANNUAL WWE Allergies: MORPHINE, CODEINE Chief complaint: C/O NO MENSES SINCE 08/01. IS HAVING HOT FLASHES, NIGHT SWEATS, FATIGUE, AND MOODINESS. History of present illness: H/O LSO, PATH=BENIGN . Here for annual exam. Has not had menstrual cycle since 08/01. Is having significant hot flashes and night sweats that are interferin g with her sleep. She is also having moodiness and feels more emotional than normal. She does not want to use hormones if possible. Bowels and bladder are working well. No complaints of abd pain or discomfort. Present family and/or social history: Family history: No change in family history from prior visit. 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 Surgical: No new surgical procedures from prior visit. Health maintenance: Mammogram: Colonoscopy: Pap smear: 11/03/11 Tumor Marker: CT Scan: BMD: Review of systems: Constitutional: No change in weight, no excessive fatigue Psychiatric: No history of anxiety, depression, bipolar disorder, or insomnia Eyes: Vision unchanged Ears, Nose, Mouth, Throat: H earing normal, no swallowing difficulties, no sore throat Endocrine: No history of diabetes, thyroid disease, heat/cold intolerance Lymphatic: No enlarged lymph nodes Respiratory: No shortness of breath, cough, asthma, wheezing Cardiovascular: + MURMUR, No angina, orthopnea, edema, hypertension, hyperlipidemia Gastrointestinal: + REFLUX, No constipation or diarrhea, or vomiting Genitourinary: No dysuria, hematuria, urgency, or frequency Neurologic: + MIGRAINES, No numbness, weakness, syncope, seizures Musculoskeletal: + OSTEOPOROSIS, + ARTHRITIS,No muscle weakness, or joint pain Integumentary: No new skin lesions Gynecologic: No abnormal bleeding, vaginal discharge, pelvic pain, of h/o abnml pap smears LMP: 07/28/2012 P: 2 Vag Deliveries: C-sec: 2 Hematologic: No history of anemia, easy bruising, or blood clots Medications: See documented medication list. Physical exam: Constitutional: [place] [address] [place] [id number] Pulse Temp Neurological/Psychiatric: HEENT: Neck: Respiratory: Cardiovascular: Breasts: Gastrointestinal: Lymphatic: Extremities: Skin: Gynecologic: External Genitalia: Vagina: Cervix: Uterus: Ovaries: No fullness or mass appreciated on the L, R surgically absent Parametria: Smooth. Rectovaginal: Hemoccult: Procedure note: Assessment: Annual Well Woman Exam H/O Hydrosalpinx/Ov Cyst on R Plan: Mamm 12/19/12 Effexor XR 37.5 mg 1 PO QDay # 30 refills x 11, informed pt about dosing, schedule, and possible side effects of this medication. I informed her not to stop it abruptly and that results will take 4-6weeks to be fully noticeable. I also informed her to call if symptoms worsen or if she experiences side effects. Acyclovir 800 mg PO BID x 5 days as needed for outbreak # 10 REFILLS X 6 FSH today-call for results in 2-4 days RTC Approved by: Prema Kidd 2:06 PM , 12/03/2012 cc: documented in this encounter Plan of Treatment Not on file documented as of this encounter Visit Diagnoses Not on filedocumented in this encounter Care Teams Head Of Ict Relationship Specialty Start Date End Date Chidi Senior MD [address] [place] [address] [address] [facility] [address] [place] [address] PCP - General Family Medicine 03/22/19 documented as of this encounter
--- OUTSIDE RECORDS SUMMARY | 2025-07-31 09:37 | XMS_ITS | Clinical Summary ---
Author Organization [facility] Address [address] [place] [address] Care Team Providers Care Cylinder Head Assembler Name Role Phone Chidi Senior MD Primary Care Provider [phone] Allergies Active Allergy Reactions Criticality Noted Date Comments Codeine Itching,Nausea And Vomiting 01/02/20 17 Morphine And Codeine Itching,Nausea And Vomiting 01/02/2017 Medications [place]-3 Fatty Acids (FISH OIL) 1000 MG capsule capsule Take by mouth Daily With Breakfast. Active Multiple Vitamins-Minera ls (MULTIVITAMIN ADULT PO) Take by mouth. Active acyclovir (ZOVIRAX) 400 MG tabletIndicatio ns:HSV infection Take 2 tablets by mouth 2 (Two) Times a Day. For 5 days 20 tablet 11 10/20/2022 Active venlafaxine XR (EFFEXOR-XR) 75 MG 24 hr capsuleIndicati ons:Other depression TAKE 1 CAPSULE BY MOUTH DAILY 90 capsule 3 03/12/2025 Active Active Problems Problem Noted Date Diagnosed Date Vasomotor symptoms due to menopause 10/23/2023 Overview (10/23/2023): We reviewed interventions for vasomotor symptoms including nonhormonal nonFDA approved Black Cohosh and Estroven, Veozah, and HRT (benefits, risks, se reviewed). She will begin non FDA approved option and call if she desires and rx. Also, Begin simple behavioral measures, such as lowering room temperature, using fans, dressing in layers of clothing that can be easily shed, and avoiding triggers, can help reduce the number of hot flashes. Vaginal atrophy 10/23/2023 Overview (11/04/2024): Causing dyspareunia and vaginal dryness. We reviewed interventions including non hormonal vaginal lubricants and moisturizers to improve atrophic vaginal tissue and vaginal dryness, and dyspareunia. Advised to use moisturizers 2-3x week and lubricants during IC. List of options provided to patient.Vaginal estrogen options reviewed. Benefits, risks, instructions, and se reviewed. She will begin non hormonal options first and call if she desires vaginal estrogen. Well female exam with routine gynecological exam 01/11/2017 Ovarian mass 01/11/2017 Hydrosalpinx 01/11/2017 Cervical dysplasia 01/11/2017 Migraine 01/02/2017 Allergy 01/02/2017 Acid reflux 01/02/2017 Arthritis 01/02/2017 Osteoporosis 01/02/2017 Overview (11/04/2024): 11/04/2024- Major fx 8.5%, Hip fx 1.4% Recommended use of Vitamin D, adequate dietary calcium (1500mg), weight bearing exercises, avoid alcohol, and avoid smoking . Bone health information sheet given to patient. Murmur 01/02/2017 Hemorrhoid 01/02/2017 Resolved Problems Problem Noted Date Diagnosed Date Resolved Date Atrophic vaginitis 11/04/2024 Family History Medical History Relation Name Comments Breast cancer Maternal Grandmother Ox[place] Breast cancer Paternal Grandmother Silverio Colon cancer Neg Hx Ovarian cancer Neg Hx Uterine cancer Neg Hx Relation Name Status Comments Maternal Grandmother [place] Paternal Grandmother Silverio Social History Tobacco Use Types Packs/Day Years Used Date Smoking Tobacco: Former Cigarettes 0.5 30 Smokeless Tobacco: Never Tobacco Cessation:Counseling Given: Not Answered Comments:vape, quit cigarettes 3 years ago Alcohol Use Standard Drinks/Week Comments Yes 0 (1 standard drink = 0.6 oz pur e alcohol) MODERATE Comments No Sex and Gender Information Value Date Recorded Sex Assigned at Not on file Legal Sex Female 10:55 AM EDT Gender Identity Not on file Sexual Orientation Not on file Last Filed Vital Signs Vital Sign Reading Time Taken Comments Blood Pressure 120/84 11/04/2024 2:32 PM EST Pulse 71 01/11/2017 10:37 AM EST Temperature 36.6 C (97.8 F) 01/11/2017 10:37 AM EST Respiratory Rate 14 01/11/2017 10:37 AM EST Oxygen Saturation 97% 01/11/2017 10:37 AM EST Inhaled Oxygen Concentration - - Weight 49 kg (108 lb) 11/04/2024 2:32 PM EST Height 157.5 cm (5' 2 ) 11/04/2024 2:32 PM EST Body Mass Index 19.75 11/04/2024 2:32 PM EST Plan of Treatment Health Maintenance Due Date Last Done Comments TDAP/TD VACCINES (1 - Tdap) 1986 COLOGUARD 2012 COLON CANCER SCREENING [address] Y[address] SIG[address] COLONOGRAPHY 2012 FECAL OCCULT BLOOD TEST 2012 FIT Testing (1 year) 2012 Pneumococcal Vaccine 50+ (1 of 1 - PCV) 2017 ZOSTER VACCINE (1 of 2) 2017 ANNUAL PHYSICAL 02/02/2018 HEPATITIS C SCREENING 02/02/2018 COVID-19 Vaccine (4 - 2024-2 6 season) 2025 07/29/2022, 01/08/2021, 12/11/2020 INFLUENZA VACCINE 08/20/2025 Annual Gynecologic Pelvic an d Breast Exam 11/05/2025 11/04/2024, 06/17/2021, 01/11/2017 MAMMOGRAM 09/25/2026 09/25/2024, 08/22, 07/14/2023, Additional history exists PAP SMEAR 10/23/2026 10/23/2023, 05/21, 03/13/2020, Additional history exists COLONOSCOPY 11/20/2028 11/20/2018 COLORECTAL CANCER SCREENING 11/20/2028 Procedures Procedure Name Priority Date/Time Associated Diagnosis Comments MAMMO SCREENING DIGITAL TOMOSYNTHESIS BILATERAL W CAD Routine 09/19/2024 2:02 PM EDT Visit for screening mammogram LIQUID-BASED PAP SMEAR WITH HPV GENOTYPING REGARDLESS OF INTERPRETATION, [facility] ([facility]) Routine 10/23/2023 5:03 PM EST Women's annual routine gynecological examination Screening for cervical cancer SCANNED - PAP SMEAR 06/17/2021 from Last 3 Months or Most Recently Relevant to Health Maintenance Results * Mammo Screening Digital Tomosynthesis Bilateral With CAD (09/19/2024 2:02 PM EDT) Anatomical Region Laterality Modality Breast N/A Mammography 09/25/2024 1:19 PM EST Impressions 09/25/2024 1:20 PM EST Negative bilateral mammogram. RECOMMENDATION: Continue annual screening mammography. BI-RADS CATEGORY 1, NEGATIVE. CAD was utilized. The standard false-negative rate of mammography is between 10% and 25%. Complex patterns or increased breast density will markedly elevate the false-negative rate of mammography. A letter, in lay terminology, with the results of this exam will be mailed to the patient. This report was finalized on 09/25/2024 1:[address] Tyra Yepez MD. Narrative 09/25/2024 1:20 PM EST DIGITAL SCREENING MAMMOGRAM WITH TOMOSYNTHESIS HISTORY: Screening Mammography. Low dose full field digital breast tomosynthesis imaging was performed with 2D and 3D acquisitions consisting of bilateral CC and MLO views. Examination is compared to prior examination dating back to 03/22/2019. Examination is read in conjunction with computer aided detection. FINDINGS: The breast tissue is heterogeneously dense, which may obscure small masses. No suspicious masses, microcalcifications or areas of architectural distortion are present. Jett Estes MD [facility] MAMMOGRAPHY ORDERABLES Dorcas l Result * LIQUID-BASED PAP SMEAR WITH HPV GENOTYPING REGARDLESS OF INTERPRETATION (DANTE,COR,MAD) (10/23/2023 5:03 PM EST) Reference Lab Report [facility] [address] [place] [address] or [phone] Felix Saenz M.D., Gimp Tacker PATIENT NAME LABORATORY NO. SANA SEVERINO. [id number] AGE SEX SSN CLIENT REF # [facility] 1965 F [id number] [id number] REQUESTING Edith. [place] [address] MIKEY DAVISON DATE COLLECTED DATE RECEIVED DATE REPORTED 10/23/2023 10/23/2023 10/25/2023 ThinPrep Pap with Cytyc Imaging DIAGNOSIS: Negative for intraepithelial lesion or malignancy Multiple factors can influence accuracy of Pap tests; therefore, screening at regular intervals is necessary for early cancer detection. SPECIMEN ADEQUACY: SATISFACTORY FOR EVALUATION Transformation zone is present. SOURCE OF SPECIMEN: CERVICAL/ENDOCERV ICAL SLIDES: 1 CLINICAL HISTORY: Women's annual routine gynecological examination Screening for cervical cancer, Menopausal HPV HR-HPV POOL: Negative The Aptima HPV assay is an in vitro nucleic acid amplification test for the qualitative detection of E6/E7 viral messenger RNA from 14 high risk types of HPV in cervical specimens. The high risk HPV types detected include: 16, 18, 31, 33, 35, 39, 45, 51, 52, 56, 58, 59, 66, 68 SENIOR INVESTIGATOR: SUE ESCOBAR (ASCP) CPT CODES: 46783, 71647 10/25/2023 11:28 AM EST [facility] ThinPrep Vial Cervix uteri structure / Unknown Collection / Unknown 10/23/2023 5:03 PM EST 10/23/2023 5:03 PM EST Mikey Davison PATHOLOGY LABORATORY TECHNOLOGIST PATHOLOGY/CYTOLOGY ORDERAB LES Final Result [facility]
[address] [place] [address], [place] [phone] * SCANNED - PAP SMEAR (06/17/2021) Jett Estes MD CHART REVIEW TABS Final Resu lt from Last 3 Months or Most Recently Relevant to Health Maintenance Insurance Care Teams Cylinder Head Assembler Relationship Specialty Start Date End Date Chidi Senior MD [facility] [address] [place] [address] PCP - General Family Medicine 03/22/19
--- OUTSIDE RECORDS SUMMARY | 2025-07-31 09:38 | XMS_ITS | Patient Health Record ---
Author Organization [facility] Address [address] [facility] [address] [place] [id number] Care Team Providers Care Biochemistry Technologist Name Role Phone Latia Avina Primary Care Provider VinodMichela armstrong Unavailable [phone] Allergies Allergen (clinical drug ingredient) Drug/Non Drug [...] 65 Performing Lab: Notes/Report: Test performed by [facility] [address] [place] [address] , [address], [place] [address] Andi Fermin MD, Aquatic Habitat Biologist CLIA: [id number] Sodium 140 135-145 mmol/L Potassium 4.4 3.5-5.3 [...] 0.5 <0.2-1.2 mg/dL A/G Ratio 1.7 1.1-2.5 P-Lipid Panel Reviewed date:07/01/2025 09:20:14 AM Interpretation:chol 299, non-hdl 160, ldl 146 Performing Lab: Notes/Report: Test performed by [facility], [address] , [facility], [place] [address] Andi Fermin MD, Aquatic Habitat Biologist CLIA: [id number] Cholesterol 299 <200 mg/dL Triglycerides 71 <150 [...] Interpretation:Normal Performing Lab: Notes/Report: Test performed by [facility] [address] , [place] [address] Andi Fermin MD, Aquatic Habitat Biologist CLIA: [id number] TSH 2.61 0.43-5.25 mU/L CBC Venipuncture (in house) Reviewed date:07/10/2025 01:17:48 [...] Interpretation:Normal Performing Lab: Notes/Report: Test performed by [facility] [address] [place] [address] , [place] [address] Andi Fermin MD, Aquatic Habitat Biologist CLIA: [id number] ALT (SGPT) 35 <5-47 IU/L P-AST (SGOT) Reviewed date:07/24/2025 02:08:02 PM Interpretation:43 Performing Lab: Notes/Report: Test performed by [facility] [address] [place] [address] , [address], [place] [address] Andi Fermin MD, Aquatic Habitat Biologist CLIA: [id number] AST (SGOT) 43 <5-40 IU/L P-Hepatitis Acute Profile Reviewed date:07/24/2025 02:08:02 PM Interpretation:Normal Performing Lab: Notes/Report: Test performed by [facility] [address] [place] [address] [place], [place] [address] Andi Fermin MD, Aquatic Habitat Biologist CLIA: [id number] Hepatitis A Antibody, IgM Nonreactive Nonreactive Hepatitis B Core Antibody (HBcAb) IgM Nonreactive Nonreactive Hepatitis B Surface Antigen (HBsAg) Nonreactive Nonreactive Hepatitis C Antibody (HCV) IgG Nonreactive Nonreactive P-T4 Free (thyroxine) Reviewed date:07/01/2025 09:20:14 AM Interpretation:Normal Performing Lab: Notes/Report: Test performed by [facility] [address] [place] [address] [address], [place] [address] Andi Fermin MD, Aquatic Habitat Biologist CLIA: [id number] Thyroxine Free (free T4) 0.95 0.86-1.76 ng/dL Reason For Referral Diagnosis 1 Gastroesophageal ref lux disease, unspecified whether esophagitis present (K21.9) [facility] Referring Provider First Name Michela Referring Provider Last Name Yves Referring Provider Speciality Physician School Bus Driver/Mechanic Referred Provider Specialty Gastroentero logy General Notes Needs appt with Analy Manrique Brynn 06/27/2025 09:14:14 AM > faxed to Dr. Mcpherson office Referral Priority Routine Medications Medication SIG (Take, Route, Frequency, Duration) [...] W/U Status Risk Notes Problem Essential hypertension (51546675) Essential hypertension (I10) Active confirmed Problem Increased blood leukocyte number (489819013) Other elevated white blood cell count (D72.828) Active confirmed Problem Mixed hyperlipidemia (576599197) Mixed hyperlipidemia (E78.2) Active confirmed Problem Thyroid nodule (115485550) Thyroid nodule (E04.1) Active confirmed Problem Postmenopausal state (finding) (05667283) Postmenopausal symptoms (N95.9) Active confirmed Problem Gastroesophageal reflux disease (706152368) Gastroesophageal reflux disease, unspecified whether esophagitis present (K21.9) Active confirmed Vital Signs Heart Rate 74 /min 07/10/2025 Blood pressure diastolic 90 mm Hg 07/10/2025 Height 63.50 in 07/10/2025 Blood pressure systolic 144 mm Hg 07/10/2025 Weight 103 lbs 07/10/2025 BMI 17.96 kg/m2 07/10/2025 Encounters Encounter Location Date Provider Diagnosis Terra [address] [facility] [address] [place] [id number] 06/26/2025 Michela Marinelli Routine physical examination Z00.00 ; Gastroesophageal reflux disease, unspecified whether esophagitis present K21.9 ; Postmenopausal symptoms N95.9 ; Fatigue, unspecified type R53.83 ; Thyroid nodule E04.1 ; Screening, lipid Z13.220 and Elevated blood pressure reading R03.0 [facility] [address] [place] [id number] 07/10/2025 Michela Marinelli Essential hypertensi on I10 ; Mixed hyperlipidemia E78.2 ; Elevated LFTs R79.89 and Other elevated white blood cell count D72.828 [facility] [address] [place] [id number] 07/15/2025 Latia Avina [facility] [address] [place] [id number] 07/01/2025 Michela Marinelli [facility] [address] [place] [id number] 07/24/2025 Michela Marinelli Assessments Encounter Date Diagnosis (ICD Code) Assessment Notes Treatment Notes Treatment Clinical Notes Section Notes 06/26/2025 Routine physical examination (ICD-10 - Z00.00) 06/26/2025 Gastroesophageal reflux disease, unspecified whether esophagitis present (ICD-10 - K21.9) 07/10/2025 Essential hypertension (ICD-10 - I10) 07/10/2025 Mixed hyperlipidemia (ICD-10 - E78.2) Will need to start on a statin, but will check LFT's, hepatitis panel, and Liver U/S first. 07/10/2025 Elevated LFTs (ICD-10 - R79.89) 06/26/2025 Postmenopausal symptoms (ICD-10 - N95.9) 06/26/2025 Fatigue, unspecified type (ICD-10 - R53.83) 07/10/2025 Other elevated white blood cell count (ICD-10 - D72.828) 06/26/2025 Thyroid nodule (ICD-10 - E04.1) 06/26/2025 Screening, lipid (ICD-10 - Z13.220) 06/26/2025 Elevated blood pressure reading (ICD-10 - R03.0) Will monitor twice a day at home and f/u in 2 weeks with BP log. Plan Of Treatment Pending Test Test Name Order Date Ultrasound : Abdomen limited 07/10/2025 Insurance Providers Payer Name Payer Address Payer Phone Subscriber Number Group Number Insured Name Patient Relationship to Insured Coverage Start Date Coverage End Date [facility] [address] [place] [address] [id number] Shanthi Wu Self - patient is the insured Medical (General) History Medical History History ICD Code Migraines Perenial Allergies Surgical History Surgery Date(Month/Year) X 2 Ovary and Fallopian tubes removed-right side 08/2011 Hospitalization History Reason Date(Month/Year) [facility] 1985
== END 2025-07-31 23:59 | disposition home or self-care (01) ==
LOC: RAD 09:20
PROVIDERS: PCP Physician Assistant; Visit Provider Physician Assistant
DX: K76.0 Fatty (change of) liver, not elsewhere classified (principal); R79.89 Other specified abnormal findings of blood chemistry
CPT/HCPCS: 76705

== ENCOUNTER 2025-09-11 15:24 | Outpatient (CLI) | payer BC, SELFPAY ==
--- OUTSIDE RECORDS SUMMARY | 2024-11-04 14:57 | XMS_ITS | Encounter Summary ---
[facility] Address [address] [place] [address] Care Team Providers Care Utilization Manager Name Role Phone Chidi Senior MD Primary Care Provider [phone] Reason for Referral * Diagnostic Imaging (Routine) - Closed Specialty Diagnoses / Procedures Referred By Contact Referred To Contact Obstetrics and Gynecology Diagnoses Screening for osteoporosis Procedures DEXA Bone Density Axial Juana Gilliland APRN [address] [place] [address] Phone: tel: fax: [facility] [address] [address] Phone: tel: fax: Referral ID Status Reason Start Date Expiration Date Visits Re quested Visits Authorized [id number] Closed 11/04/2024 11/04/2025 1 1 Reason for Visit * Diagnostic Imaging (Routine) - Closed Specialty Diagnoses / Procedures Referred By Contact Referred To Contact Obstetrics and Gynecology Diagnoses Screening for osteoporosis Procedures DEXA Bone Density Axial Juana Gilliland APRN [address] [facility] [address] [place] [address] Phone: tel: fax: [facility] [address] [facility] [address] [place] [address] Phone: tel: fax: Referral ID Status Reason Start Date Expiration Date Visits Re quested Visits Authorized [id number] Closed 11/04/2024 11/04/2025 1 1 Encounter Details Date Type Department Care Team (Latest Contact Info) Description 11/04/2024 1:57 PM EST Hospital Encounter [facility] [address] [facility] [address] [place] [address] Screening for osteoporosis Social History Tobacco Use [...] as of this encounter Plan of Treatment Upcoming Encounters Date Type Department Care Team (Late st Contact Info) Description 11/03/2025 8:20 AM EST Appointment [facility] [address] [facility] [address] [place] [address] documented as of this encounter Procedures Procedure [...] Years Jett Estes MD us Juana Gilliland [employer]YWALL HANGER IMG DXA ORDERABLES Final R esult documented in this encounter Visit Diagnoses Diagnosis Screening for osteoporosis Special screening for osteoporosis documented in this encounter Care Teams Utilization Manager Relationship Specialty Start Date End Date Chidi Senior MD [address] [facility] [address] [place] [address] PCP - General Family Medicine 03/22/19 documented as of this encounter
--- NOTE | 2025-09-11 15:26 | CT_ITS ---
FINAL REPORT CLINICAL HISTORY: SCREENING pt currently vapes former cigarette smoker x 7 yrs ago 1/2 ppd x 35 yrs FINDINGS: CT CHEST LOW DOSE SCREENING HISTORY: Screening exam for lung cancer. DOSE: CTDI vol: 2.90 mGy, DLP: 110.20 mGy*cm TECHNIQUE: Axial CT without IV contrast administration using low dose protocol. This study was performed with techniques to keep radiation doses as low as reasonably achievable, (ALARA). Individualized dose reduction techniques using automated exposure control or adjustment of mA and/or kV according to the patient's size were employed. No acute lung disease is present. No pulmonary lesions are seen suspicious for neoplasm. No pleural or pericardial effusion is seen. No adenopathy or mass lesion is present. Limited images of the upper abdomen show fatty infiltration of the liver. IMPRESSION: No evidence of lung cancer LUNG RADS CATEGORY 1 RECOMMENDATION: 12 month LDCT follow up Reviewed, Interpreted and Dictated by Yanira Maddox MD Transcribed by Alisha Godinez Authenticated and [facility]
--- OUTSIDE RECORDS SUMMARY | 2025-09-11 15:37 | XMS_ITS | Clinical Summary ---
Author Organization [facility] Address [address] [place] [address] Care Team Providers Care Automotive Parts Counter Assistant Name Role Phone Chidi Senior MD Primary Care Provider [phone] Allergies Active Allergy Reactions Criticality Noted Date Comments Codeine Itching,Nausea And Vomiting 01/02/20 17 Morphine And Codeine Itching,Nausea And Vomiting 01/02/2017 Medications [place]-3 Fatty Acids (FISH OIL) 1000 MG capsule [...] 11/04/2024 2:32 PM EST Plan of Treatment Upcoming Encounters Date Type Department Care Team (Late st Contact Info) Description 11/03/2025 8:20 [place] [address] Health Maintenance Due Date Last Done Comments TDAP/TD VACCINES (1 - Tdap) 1986 COLOGUARD 2012 COLON CANCER SCREENING 5 YEA R SIGMOIDOSCOPY [address] COLONOGRAPHY 2012 FECAL OCCULT BLOOD TEST 2012 FIT Testing (1 year) 2012 Pneumococcal Vaccine 50+ (1 of 1 - PCV) 2017 ZOSTER VACCINE (1 of 2) 2017 ANNUAL PHYSICAL 02/02/2018 HEPATITIS C SCREENING 02/02/2018 INFLUENZA VACCINE 06/20/2025 Annual Gynecologic Pelvic an d Breast Exam 11/05/2025 11/04/2024, 06/17/2021, 01/11/2017 MAMMOGRAM 09/25/2026 09/25/2024, 08/22, 07/14/2023, Additional history exists PAP SMEAR 10/23/2026 10/23/2023, 0707/2021, 03/13/2020, Additional history exists COLONOSCOPY 11/20/2028 11/20/2018 [...] architectural distortion are present. Jett Estes MD IM MAMMOGRAPHY ORDERABLES Dorcas l Result * LIQUID-BASED PAP SMEAR WITH HPV GENOTYPING REGARDLESS OF INTERPRETATION (DANTE,COR,MAD) (10/23/2023 5:03 PM EST) Reference Lab Report [facility] [address] [place] [address] or [phone] Felix Saenz M.D., Music Composition Teacher PATIENT NAME LABORATORY NO. SANA SEVERINO. [id number] AGE SEX SSN CLIENT REF # [facility] [id number] F [id number] REQUESTING Edith. [place] [address] IMKEY DAVISON DATE COLLECTED DATE RECEIVED DATE REPORTED [...] 51, 52, 56, 58, 59, 66, 68 NICKEL PLATER: SUE ESCOBAR (ASCP) CPT CODES: 02856, 31645 10/25/2023 11:28 AM EST [facility] ThinPrep Vial Cervix uteri structure / Unknown Collection / Unknown 10/23/2023 5:03 PM EST 10/23/2023 5:03 PM EST Mikey Davison CLEANING STAFF SUPERVISOR PATHOLOGY/CYTOLOGY ORDERAB LES Final Result [facility]
[address] [place] [address], [place] [phone] * SCANNED - PAP SMEAR (06/17/2021) Jett Estes MD CHART REVIEW TABS Final Resu lt from Last 3 Months or Most Recently Relevant to Health Maintenance Insurance Care Teams Automotive Parts Counter Assistant Relationship Specialty Start Date End Date Chidi Senior MD [address] [facility] [address] [place] [address] PCP - General Family Medicine 03/22/19
--- OUTSIDE RECORDS SUMMARY | 2025-09-11 15:37 | XMS_ITS | Encounter Summary ---
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 [address] [facility] [address] [place] [address] PCP - General Family Medicine 03/22/19 documented as of this encounter
== END 2025-09-11 23:59 | disposition home or self-care (01) ==
LOC: RAD 15:25
PROVIDERS: PCP Family Medicine; Visit Provider Family Medicine
DX: Z12.2 Encounter for screening for malignant neoplasm of respiratory organs (principal); Z87.891 Personal history of nicotine dependence
CPT/HCPCS: 71271

== ENCOUNTER 2025-10-01 10:58 | Day surgery (SDC) | payer BC, SELFPAY ==
--- NOTE | 2025-09-28 11:42 | EXP.HP ---
History of Present Illness *Admission Date: 10/01/25 *History of present illness: Mrs. Wu is a 59-year-old female who is here for diagnostic EGD. The patient does state that about 18 months ago she started having symptoms of acid reflux. She was placed on Pepcid which helped. If she forgets to take the Pepcid she immediately gets symptoms. She also noticed the development of nausea and intermittent vomiting which will occur every few months. She has never had an EGD. The examination is deemed medically necessary for diagnostic EGD. The patient has been seen, interviewed and examined prior to the procedure by both myself and the anesthesia provider. [facility] Disclaimer: The information contained in this section may have been updated after the patient was seen, as this information can be updated by other users. Medical History Foot fracture, left No significant past medical history Surgical History Previous section Family History Other Family history of hyperlipidemia Family history of hypertension No significant family history Social History (Updated 10/01/25 @ 12:23 by Sisi Courtney RN) Smoking Status: Current every day smoker tobacco type: e-cigarettes second hand exposure: No alcohol intake: current alcohol intake frequency: 0-2 drinks per day substance use type: denies use current occupational status: employed Travel in the last 8 weeks?: None household members: spouse and children housing: house 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 current occupational exposures/hazards: No caffeine: Yes Have you lived/traveled outside US in past 30 days?: No Contact w/someone who lives/traveled outside US past 30 days?: No Exposure to someone with infectious disease in past 14 days?: No Do you have a fever (greater than 100.4 F or 38 C)?: No Have you tested positive for COVID-19?: No Exposed to someone with COVID-19 in past 14 days?: No Do you have a sore throat?: No Do you have a cough?: No Do you have any weakness?: No Do you have any diarrhea?: No Are you experiencing any unusual bleeding?: No Do you have any muscle aches/pain?: No Do you have any abdominal pain?: No Are you experiencing loss of taste or smell?: No Other Medical History Have you received the Flu Vaccine for this season: No Have you received the Pneumonia Vaccine: No Review of Systems Review of Systems Review of systems (narrative): Negative *Cardiovascular Comments: Negative *Gastrointestinal Comments: Negative *Genitourinary Comments: Negative *Musculoskeletal Comments: Negative *Neurologic Comments: Negative Meds Home Medications and Allergies Home Medications ?Medication ?Instructions ?Recorded ?Confirmed ?Type acyclovir 800 mg tablet 800 mg PO NEEDED PRN sores 12/04/18 10/01/25 History diphenhydramine HCl 25 mg capsule 25 mg PO DAILY allergies 12/04/18 10/01/25 History omega-3 fatty acids 300 mg capsule 300 mg PO DAILY Supplement 12/04/18 10/01/25 History venlafaxine 75 mg capsule,extended 75 mg PO DAILY mood 12/04/18 10/01/25 History release 24 hr ergocalciferol (vitamin D2) 10 mcg 1,000 unit PO DAILY Supplement 07/31/25 10/01/25 History (400 unit) tablet famotidine 20 mg tablet (Pepcid AC 20 mg PO DAILY 07/31/25 10/01/25 History Maximum Strength) lisinopril 5 mg tablet 5 mg PO DAILY 07/31/25 10/01/25 History New Prescriptions to Start Prescriptions: Allergies Allergy/AdvReac Type Severity Reaction Status Date / Time codeine AdvReac Vomiting Verified 10/01/25 12:21 morphine AdvReac Nausea Verified 10/01/25 12:21 Exam *Routine HEENT Exam Head: Present normocephalic Eye: Present EOMI and PERRL ENT: Present mucous membranes moist *Routine Neck Exam Neck: Present supple *Routine Respiratory Exam Respiratory: Present CTA bilaterally *Routine Cardiovascular Exam Cardiovascular: Present RRR *Routine Abdominal Exam Abdominal: Present soft and normoactive bowel sounds; Absent tenderness *Routine Rectal Exam Rectal:: deferred *Routine Genitalia Exam Genitalia:: deferred *Routine Extremities Exam Extremities: Absent cyanosis, clubbing or edema *Routine Skin Exam Skin: Present warm; Absent rash *Routine Neurological Exam Neurological: Present alert and oriented X3 Assessment and Plan *Assessment and plan (1) Acid reflux: Status: Acute Category: Medical Code(s): K21.9 - Gastro-esophageal reflux disease without esophagitis (2) Nausea & vomiting: Status: Acute Category: Medical Code(s): R11.2 - Nausea with vomiting, unspecified Plan A/P: 1. GERD/reflux with intermittent nausea and vomiting is the preprocedural diagnosis. The patient will be anesthetized/sedated using MAC sedation. The patient has been seen and examined. Cardiac and lung assessment prior to the examination is stable. Proceed with planned diagnostic EGD.
[2025-09-30 14:22] VITALS: BMI 18.9
--- NOTE | 2025-10-01 07:06 | P.PCN_ITS ---
[facility] Procedure Note Date: 10/01/25 Time: 13:02 Procedure Note:: Upper Endoscopy Procedure Report: Esophagogastroduodenoscopy with cold biopsies Endoscopost: Rivera Mcpherson II, MD Referring Physician: Austin Avina MD Date of Procedure: October 01, 2025 Equipment: Olympus GIF-1100 standard upper endoscope Sedation: MAC sedation Indications: Mrs. Wu is a 59-year-old female who is here for diagnostic EGD. The patient does state that about 18 months ago she started having symptoms of acid reflux. She was placed on Pepcid which helped. If she forgets to take the Pepcid she immediately gets symptoms. She also noticed the development of nausea and intermittent vomiting which will occur every few months. This happened again this past weekend when she went to [place] and was eating at the [employer]. She does get pyrosis and burning in her throat. She reports no bloating, belching or dysphagia. She has never had an EGD. The examination is deemed medically necessary for diagnostic EGD Procedure: Prior to the procedure, a history and physical exam was performed, and patient's medications and allergies were reviewed. The risks, benefits and alternatives of the sedation and procedure were discussed with the patient. All questions were answered and informed consent was obtained. The patient was brought to the procedure room. Patient identification and proposed procedure were verified by the physician and the nurse. The patient was placed in a left lateral decubitus position and the scope was passed under direct vision. Throughout the procedure, the patient's blood pressure, pulse, and oxygen saturations were monitored continuously. The upper GI endoscopy was accomplished without difficulty. The patient tolerated the procedure well. Findings: The scope was passed directly into the upper esophagus and advanced to the third portion of the duodenum. The post bulbar duodenum, ampulla and duodenal bulb were normal with normal mucosa and conniventes. 2 cold biopsies were taken from the second portion of the duodenum for the disaccharidase assay. The scope was withdrawn through a normal duodenal bulb and pylorus into the stomach. There was bile reflux with linear reactive gastropathy of the antrum. The body and fundus of the stomach were grossly normal. Cold biopsies were taken from the antrum. Upon retroflexion there was no hiatal hernia. The scope was then withdrawn into the esophagus. There was a single small linear superficial erosion in the distal esophagus with a serrated Z-line consistent with grade A reflux esophagitis (LA classification). The remainder of the esophageal mucosa was normal. Impression: 1. Grade A reflux esophagitis (LA classification) 2. Bile reflux with mild linear reactive gastropathy of antrum Plan: I will follow-up the biopsies and disaccharidase assay. I would recommend Voquezna if covered by insurance. I will discuss the findings with the patient and family.
[2025-10-01 12:23] VITALS: BP 113/67; PULSE 73; RESP 16; TEMP 36.2; O2SAT 73; BMI 19.2
[2025-10-01] MEDS: LACTATED RINGERS 1000ML 1,000 ML 50 ML IV (12:31)
--- NOTE | 2025-10-01 12:36 | EXP.ANES.CKL ---
[facility] Disclaimer: The information contained in this section may have been updated after the patient was seen, as this information can be updated by other users. Medical History Foot fracture, left No significant past medical history Surgical History Previous section Family History Other Family history of hyperlipidemia Family history of hypertension No significant family history Social History (Updated 10/01/25 @ 12:23 by Sisi Courtney RN) Smoking Status: Current every day smoker tobacco type: e-cigarettes second hand exposure: No alcohol intake: current alcohol intake frequency: 0-2 drinks per day substance use type: denies use current occupational status: employed Travel in the last 8 weeks?: None household members: spouse and children housing: house 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 current occupational exposures/hazards: No caffeine: Yes Have you lived/traveled outside US in past 30 days?: No Contact w/someone who lives/traveled outside US past 30 days?: No Exposure to someone with infectious disease in past 14 days?: No Do you have a fever (greater than 100.4 F or 38 C)?: No Have you tested positive for COVID-19?: No Exposed to someone with COVID-19 in past 14 days?: No Do you have a sore throat?: No Do you have a cough?: No Do you have any weakness?: No Do you have any diarrhea?: No Are you experiencing any unusual bleeding?: No Do you have any muscle aches/pain?: No Do you have any abdominal pain?: No Are you experiencing loss of taste or smell?: No [facility] Anesthesia Checklist Patient Identification Patient Identification: Arm Band Structural Data Admitted From: Home Planned Operative Procedure/s: EGD Consent for Planned Operative Procedure(s) Verified: Yes Verified Documents: Surgical Consent and History and Physical NPO Status Verified Time NPO: 00:00 Additional verifications Anesthesia Reactions: No Hx Blood Transfusions: No Blood Transfusion Reaction: No Airway Assessment Mallampati Score:: Class II C-Spine Mobility Assessed: Yes TMJ Mobility Assessed: Yes Dentition: Good Dentition Neurological Assessment Level of Consciousness: Awake, Alert and Appropriate Anesthesia Plan Anesthesia Risk discussed: Yes Anesthesia Plan: Verified ASA Class: II Anesthesia Type: MAC
[2025-10-01 13:02] VITALS: BP 94/51; PULSE 75; RESP 18; TEMP 36.4; O2SAT 98
[2025-10-01 13:12] VITALS: BP 108/65; PULSE 79; RESP 16; O2SAT 98
[2025-10-01 13:22] VITALS: BP 114/70; PULSE 85; RESP 18; O2SAT 99
[2025-10-01 13:32] VITALS: BP 93/66; PULSE 80; RESP 16; O2SAT 100
[2025-10-06 09:17] LABS: Interpretation Notes (.); Lactase 10.04 (>/= 14.0); Maltase 133.39 (>/= 110.0); Palatinase 8.74 (>/= 8.5); Reference Notes (.); Sucrase 28.49 (>/= 25.0)
== END 2025-10-01 13:46 | disposition home or self-care (01) ==
PROVIDERS: PCP Family Medicine; Visit Provider Internal Medicine Gastroenterology
PROC: 0DJ08ZZ Inspection of Upper Intestinal Tract, Via Natural or Artificial Opening Endoscopic (ICD-10-PCS; CPT 43239; principal; 2025-10-01 12:30)
DX: K21.00 Gastro-esophageal reflux disease with esophagitis, without bleeding (principal); K31.89 Other diseases of stomach and duodenum; F17.290 Nicotine dependence, other tobacco product, uncomplicated; Z88.5 Allergy status to narcotic agent; Z88.6 Allergy status to analgesic agent
CPT/HCPCS: 43239; 82657; J2003; J2704; J7120